=== PATIENT | female | born 1960 | race Caucasian/White ===

== ENCOUNTER → 2017-02-13 | Outpatient (CLI) | payer BC | END | disposition home or self-care (01) | LOC: C.PAPS 11:12 | PROVIDERS: ATTEND Obstetrics & Gynecology | DX: Z01.419 Encounter for gynecological examination (general) (routine) without abnormal findings (principal) ==

== ENCOUNTER → 2017-03-13 | Outpatient (CLI) | payer BC ==
--- NOTE | 2017-03-14 14:30 | MAMMOGRAPHY REPORT ---
BILATERAL DIGITAL SCREENING MAMMOGRAM TOMOSYNTHESIS WITH CAD: 03/13/2017 CLINICAL HISTORY: Routine screening. Patient has no complaints. TECHNIQUE: Breast tomosynthesis in addition to standard 2D mammography was performed. Current study was also evaluated with a Computer Aided Detection (CAD) system. COMPARISON: Comparison is made to exams dated: 03/11/2016 mammogram, 03/07/2015 mammogram, 02/28/2014 ma mmogram, 02/23/2013 mammogram, 02/21/2012 mammogram, and 02/18/2011 mammogram - [facility] nter. BREAST COMPOSITION: The tissue of both breasts is heterogeneously dense, which may obscure small mas ses. FINDINGS: There is an oval circumscribed 6 mm mass in the right 12:00 anterior breast, which appears slightly increased in size compared to prior exams. Recommend ultrasound for further evaluation. T his may represent a cyst. The remainder of both breasts are stable compared to prior exams, without suspicious masses, calcific ations, or areas of architectural distortion noted. Scattered bilateral benign-appearing calcificati ons are not significantly changed. IMPRESSION: ACR BI-RADS CATEGORY 0: INCOMPLETE EVALUATION: NEED ADDITIONAL IMAGING EVALUATION Right breast mass, for which additional imaging evaluation is recommended. The patient will be juarez d to schedule an appointment. Approximately 10% of breast cancers are not detected with mammography. A negative mammographic report should not delay biopsy if a clinically suggestive mass is present. Chelsey Sampson M.D. /:03/13/2017 16:44:26 Environmental Associate: Chary OLMEDO(Laura)(M), [facility] letter sent: Addl Imaging 0 BI-RADS Code: ACR BI-RADS Category 0: Incomplete Evaluation: Need Additional Imaging Evaluation
== END | disposition home or self-care (01) ==
LOC: C.MAMM 07:39
PROVIDERS: ATTEND Obstetrics & Gynecology
DX: Z12.31 Encounter for screening mammogram for malignant neoplasm of breast (principal); N63 Unspecified lump in breast

== ENCOUNTER → 2017-03-26 | Outpatient (CLI) | payer BC ==
--- NOTE | 2017-03-26 14:15 | MAMMOGRAPHY REPORT ---
ULTRASOUND OF RIGHT BREAST: 03/26/2017 CLINICAL HISTORY: Callback from screening mammogram for right 12:00 breast mass. COMPARISON: Comparison is made to exams dated: 03/13/2017 mammogram, 03/11/2016 mammogram, 03/07/2015 m ammogram, 02/28/2014 mammogram, 02/23/2013 mammogram, and 02/21/2012 mammogram - [facility] nter. TECHNIQUE: Real-time targeted ultrasound of the right breast was performed. FINDINGS: Real-time, high resolution targeted ultrasound was performed of the region of the mammogra phic mass seen on the recent screening mammogram. In the right breast at 12:00 subareolar region, th ere is a superficially located oval circumscribed mixed echogenicity mass, which is predominantly ane choic although has some echogenic portions within it. The mass measures 6 x 2 x 6 mm. This correspo nds with the mammographic mass and likely represents a complicated cyst, however, a mixed cystic and solid mass is not excluded. Recommend ultrasound guided aspiration versus biopsy for further evaluat ion. IMPRESSION: ACR BI-RADS CATEGORY 4A: LOW SUSPICION FOR MALIGNANCY - FOLLOW-UP RECOMMENDED Mixed echogenicity 6 mm mass in the right 12:00 subareolar breast, which corresponds with the mammogr aphic mass. This likely represents a complicated cyst, however, a mixed cystic and solid mass is not excluded. Therefore, recommend ultrasound guided aspiration versus biopsy for further evaluation. A phone call was made to the physician's office to confirm faxed results were received. The patient was verbally notified of the results. She tentatively scheduled the biopsy before leaving the depart ment. Chelsey Sampson M.D. ah/:03/26/2017 11:32:35 Attending Technologist: Vlad OLMEDO(R)(M), [facility] Reactor Service Operator: Chelsey Sampson MD, [facility] letter sent: Abnormal 4/5 BI-RADS Code: ACR BI-RADS Category 4A: Low Suspicion For Malignancy
== END | disposition home or self-care (01) ==
LOC: C.MAMM 10:49
PROVIDERS: ATTEND Obstetrics & Gynecology
DX: N63 Unspecified lump in breast (principal)

== ENCOUNTER → 2017-04-03 | Outpatient (CLI) | payer BC ==
--- NOTE | 2017-04-03 08:35 | Discharge Instructions ---
Discharge Instructions Procedure Procedure Date: Apr 03, 2017. Reason for visit: Right Mass-Asp Vs Bx. Discharge Discharge Date: Apr 03, 2017. Discharge Diagnosis: status post breast biopsy Instructions Activity Recommendations: Additional Limitations (see below) Return to School/Work: no limitations Recommended Home Diet: No Limitations Provider Instructions: ACTIVITY RECOMMENDATIONS: * No lifting, pushing, pulling or exercising the affected side for three days. RETURN TO SCHOOL/WORK: * You may return to work/school after the procedure, but do not perform any strenuous activities for 24 to 48 hours. MEDICATIONS: * Tylenol (two 325 mg) every four to six hours if needed for mild pain (if not allergic to Tylenol). DIET: * Resume previous diet. SPECIAL CARE INSTRUCTIONS: * Keep biopsy site dry for 24 hours. May shower after 24 hours, but do not soak (bathe) incision. * May remove Tegaderm (plastic patch) tomorrow AFTER showering. * Leave the steri-strips on for one week. Allow the steri-strips to fall off by themselves. If not off after one week, you may remove them. You may place a Bandaid crosswise over the strips, if desired. * Apply ice 10 minutes on and 10 minutes off as needed. * Wear a bra at bedtime to sleep more comfortably for 2-3 days. * Your referring physician should have the results after approximately 5 to 7 business days. * Call for unusual bleeding, fever, drainage, etc or if you have any questions call during normal business hours or after hours call Dr Sampson, [phone]. FOLLOW UP VISIT: Follow-up with Referring Physician as scheduled. Allergies Coded Allergies: No Known Allergies (Verified Allergy, Unknown, 09/24/04) Shaq Lara Recommendations: Call your doctor if: * Temperature above 101 degrees * Pain not relieved by pain medicine ordered * There is increased drainage or redness from any incision * You have any unanswered questions or concerns. Your Doctors Instructions noted above were prepared by provider Chelsey Sampson. Patient Signature Section: Patient Instructions Signature Page Maliha Jorge Patient (or Guardian) Signature/Date: I have read and understand the instructions given to me by my caregivers. Caregiver/RN/Doctor Signature/Date: The above-named patient and/or guardian has received patient instructions on this date. + Original Patient Signature Page (only) stays with chart. Please make copy for patient.
--- NOTE | 2017-04-03 12:43 | MAMMOGRAPHY REPORT ---
ULTRASOUND GUIDED BIOPSY RIGHT BREAST: 04/03/2017 CLINICAL HISTORY: Right 12:00 breast mass. PATIENT CONSENT: The procedure, risks and benefits were discussed with the patient and informed writt en consent was obtained. A timeout was performed immediately prior to the procedure. PROCEDURE DESCRIPTION: Preprocedural ultrasound demonstrates persistent of the right 12:00 periareola r breast mass. It was felt that the mass would likely not completely aspirate due to probable multip le thin internal septations, therefore, the decision was made to perform biopsy of the mass. With ul trasound guidance, aseptic technique, and lidocaine as the local anesthetic (1% lidocaine to anesthet ize the skin and 1% lidocaine with epinephrine to anesthetize the deeper tissues), the mass of concer n in the right 12:00 periareolar breast was sampled 3 times with a 14-gauge Achieve biopsy needle. T he mass was no longer evident after the samples were taken. Immediately thereafter, with ultrasound guidance, aseptic technique, and lidocaine as the local anesthetic, a metallic localizer clip was ramsey josefina at the biopsy site. Direct pressure was applied to the site immediately post procedure and hemost asis was achieved. Postprocedure unilateral mammograms were performed to confirm clip placement. Th e patient tolerated the procedure without complication. She was given wound care instructions. The s pecimens were sent to pathology for analysis. COMPARISON: Comparison is made to exams dated: 04/03/2017 mammogram, 03/26/2017 ultrasound, 03/13/2017 m ammogram, 03/11/2016 mammogram, and 03/07/2015 mammogram - [facility]. IMPRESSION: ULTRASOUND GUIDED BIOPSY Ultrasound guided biopsy of the right 12:00 breast mass, with clip placement. The patient will recei ve pathology results from her referring provider. Chelsey Sampson M.D. /:04/03/2017 08:39:22 Sales Enablement Lead: Chary Farnsworth, [facility]
--- NOTE | 2017-04-03 12:43 | MAMMOGRAPHY REPORT ---
UNILATERAL RIGHT DIGITAL DIAGNOSTIC MAMMOGRAM: 04/03/2017 CLINICAL HISTORY: Status post right breast biopsy. TECHNIQUE: Postprocedural right CC and ML views were obtained. COMPARISON: Comparison is made to exams dated: 03/26/2017 ultrasound, 03/13/2017 mammogram, 03/07/2015 mammogram, 03/11/2016 mammogram, 02/28/2014 mammogram, and 02/23/2013 mammogram - [facility] enter. BREAST COMPOSITION: The tissue of the right breast is heterogeneously dense, which may obscure small masses. FINDINGS: A new biopsy marker clip is seen in the right 12:00 subareolar breast status post ultrasou nd guided biopsy of the right 12:00 breast mass. No significant postbiopsy hematoma is seen. IMPRESSION: POST PROCEDURE IMAGING FOR MARKER PLACEMENT New biopsy marker clip status post ultrasound-guided biopsy of a right 12:00 breast mass. Pathology results are pending. Approximately 10% of breast cancers are not detected with mammography. A negative mammographic report should not delay biopsy if a clinically suggestive mass is present. Chelsey Sampson M.D. ah/:04/03/2017 08:41:17 Machine Designer: Chary Farnsworth [facility] BI-RADS Code: Post Procedure Imaging For Marker Placement
== END | disposition home or self-care (01) ==
LOC: C.MAMM 08:08
PROVIDERS: ATTEND Obstetrics & Gynecology
DX: N63 Unspecified lump in breast (principal)

== ENCOUNTER → 2018-03-09 | Outpatient (CLI) | payer OTHER, BC | END | disposition home or self-care (01) | LOC: C.PAPS 11:51 | PROVIDERS: ATTEND Obstetrics & Gynecology | DX: Z12.4 Encounter for screening for malignant neoplasm of cervix (principal) ==

== ENCOUNTER → 2018-03-18 | Outpatient (CLI) | payer OTHER, BC ==
--- NOTE | 2018-03-18 13:37 | MAMMOGRAPHY REPORT ---
BILATERAL DIGITAL SCREENING MAMMOGRAM TOMOSYNTHESIS WITH CAD: 03/18/2018 CLINICAL HISTORY: Routine screening. TECHNIQUE: The study was acquired using full field digital technology and interpreted from soft copy. Breast tomosynthesis in addition to standard 2D mammography was performed. Current study was also ev aluated with a Computer Aided Detection (CAD) system. COMPARISON: Comparison is made to exams dated: 04/03/2017 mammogram, 03/13/2017 mammogram, 03/11/2016 ma mmogram, 03/07/2015 mammogram, 02/23/2013 mammogram, and 02/28/2014 mammogram - [facility] [address] ter. BREAST COMPOSITION: The tissue of both breasts is heterogeneously dense, which may obscure small mass es. FINDINGS: There is a stable ribbon-shaped biopsy marker clip in the anterior 12:00 subareolar right b reast. Stable loose groupings of faint punctate microcalcifications in both breasts. No developing mass, architectural distortion or cluster of suspicious microcalcifications is seen in either breast. IMPRESSION: ACR BI-RADS CATEGORY 2: BENIGN There is no mammographic evidence of malignancy. A 1 year screening mammogram is recommended.( [id number]) The patient will receive written notification of the results. Some breast cancers are not detected with mammography. A negative mammographic report should not bj y biopsy if a clinically suggestive mass is present. Violeta Seymour M.D. ay/:03/18/2018 08:38:10 Structural Steel Equipment Erector: RT Braeden(Laura)(M), [facility] letter sent: Normal 1/2 BI-RADS Code: ACR BI-RADS Category 2: Benign
== END | disposition home or self-care (01) ==
LOC: C.MAMM 08:10
PROVIDERS: ATTEND Obstetrics & Gynecology
DX: Z12.31 Encounter for screening mammogram for malignant neoplasm of breast (principal)

== ENCOUNTER 2023-05-31 17:16 | Inpatient (IN) ==
--- NOTE | 2023-05-31 17:37 | Emergency Department Note ---
Impression & Plan Acute non-ST elevation myocardial infarction (NSTEMI) ED Provider Note NAME: REYNALDO ADAME AGE: 62 SEX: F : 1960 ARRIVES VIA: Walk-In INFORMANT: Patient, ED PROVIDER(S): Dejan Whittington MD CHIEF COMPLAINT: Chest pain MEDICAL DECISION MAKING: Patient presents due to concern for chest pain. IV was established blood was obtained along with an EKG troponin chest x-ray. Of note there was a significant delay in obtaining blood work as lab was called and this took a significant mount of time in order to obtain the blood work. Patient did not have any significant change in her symptoms. Blood work shows a white count of 13 with a normal H&H and platelet count. The patient's kidney function is unremarkable. Initial troponin of 96. Patient was reevaluated after receiving the positive troponin result. Patient states that she has been having some burping but no change in the 1 out of 10 chest pressure. Patient was ordered aspirin nitro and heparin. I did explain the findings to the patient she is comfortable with current plan of care. No red flag signs or risk factors for PE or DVT at this time. Patient is not hypoxic. I did speak with the on-call hospitalist service Dr. Beverly. I did obtain a repeat EKG which shows no significant change from initial EKG. Do not believe she requires STEMI activation at this time. Patient was admitted to the medicine service by Dr. Beverly Critical Care: I have personally spent 45 minutes of critical care time in direct management of this patient. This includes bedside care, interpretation of diagnostic studies, and testing, discussion with consultants, patient, and family members, and other require inpatient management activities. This 45 minutes is in excess of all separately billable procedures. Discussion w/ other healthcare providers: Dr. Beverly inpatient medicine's Prior /Outside records reviewed: I reviewed a cardiology note from Dr. Gardiner and Makenna VENTURA. Patient is have a known history of paroxysmal atrial tachycardia patient did have an exercise stress echo completed in February 2020 which was negative for inducible ischemia at that time. Patient did have a 7-day ZIO report from March 2019 which showed some episodes of SVT may be possible atrial tachycardia with variable block. Patient was to have a repeat ZIO monitor as well as orders and continue metoprolol for known history of paroxysmal atrial tachycardia. Differential diagnosis: Cardiac ischemia, aortic dissection, pulmonary embolism, pneumothorax, pneumonia, pericarditis, myocarditis, GERD, cholecystitis, pancreatitis, musculoskeletal, as well as other pathologies were considered. Diagnostics, as interpreted by me: ECG: Normal sinus rhythm, rate of 70, normal intervals, left axis deviation, no ST elevations, T wave flattening in lead V2. Other than T wave flattening in lead V2 no significant change from comparison EKG completed August 20, 2018. Repeat EKG interpreted by me Normal sinus rhythm, rate of 67, normal intervals, left axis deviation possible borderline elevation in V2 but not in contiguous leads. No significant change for comparison EKG completed earlier at 1720 Cardiac monitoring: An order was placed for continuous cardiac monitoring. The monitor shows a rate of 85 with sinus rhythm. Patient was placed on pulse oximetry Medical decision rules: Heart score, Wells score Imaging studies: I informally interpreted the patient's chest x-ray which does not show obvious pneumonia or pneumothorax with formal report to follow. HPI: Patient presents due to concern for chest discomfort that she describes as pressure which is just slightly in the left chest. Not radiating to arm neck or jaw not positional no nausea vomiting or diaphoresis. The patient did note that she had some loose stools today and does feel as if she had some achiness to the bilateral arms almost as if she had a pulled muscle but states that she did not lift anything. Patient denies any cough or fever or upper respiratory symptoms. No prior history of CAD or lung disease. The patient has followed with Dr. Gardiner with cardiology in the past for some sort of rapid heart rate but she is unsure as to exactly what this was. Patient does have a follow-up with the cardiology PA in several weeks. Patient Nu[place] any leg swelling history of DVT or PE. The patient denies any recent surgeries procedures or hospitalizations. PAST MEDICAL HISTORY: See Below PAST SURGICAL HISTORY: See Below SOCIAL HISTORY: See Below HOME MEDICATIONS: See Below ALLERGIES: See Below VITALS: See Below PHYSICAL EXAMINATION: GENERAL: NAD, non-toxic. Wearing glasses. EYE EXAM: Normal conjunctiva. PERRL, no anisocoria and EOM's grossly intact w/o pain. OROPHARYNX: Moist mucus membranes, grossly normal dentition. NECK: Supple, no nuchal rigidity, no adenopathy, non-tender. No signs of meningismus. FROM of the neck with good chin to chest and neck extension. No stridor. LUNGS: Clear to auscultation. Normal chest wall mechanics. HEART: NSR, no MRG. ABDOMEN: Abdomen soft, non-tender, no masses, no rebound or guarding. BACK: No CVA TTP. SKIN: No rashes and no bruising. UPPER EXTREMITIES: Upper extremities are grossly normal. LOWER EXTREMITIES: Grossly normal, no edema. Negative Homans' sign bilaterally. NEURO EXAM: A&O x3, cranial nerves II-XII grossly intact, normal speech, moves all 4 extremities. Past Med/Surg History Medical History (Updated 05/31/23 @ 23:13 by Dejan Whittington MD) History of herpes simplex infection History of female infertility Hypothyroidism Hypertension Surgical History History of oral surgery History of hemorrhoidectomy History of hysterectomy supracervical Family History Denies family history of Ovarian cancer Breast cancer Colorectal cancer Social History Smoking Status: Never smoker Second Hand Exposure: No; Do You Dip or Chew Tobacco: No; Hx Alcohol Use: Yes Alcohol type: other Hx Substance Use: No Preferred Language: Russian Communication Ability: Effective Shipping Support Required: No Beliefs That Will Affect Care: None Current Living Situation: Spouse Feels Safe at Home: Yes Assistive Devices: Glasses Allergies Allergies Allergy/AdvReac Type Severity Reaction Status Date / Time latex AdvReac Mild hives Verified 11/05/21 14:17 Home Meds Home Medications Medication Instructions Recorded Confirmed multivitamin 1 tab PO QAM 08/12/18 11/05/21 levothyroxine 137 mcg tablet PO 03/24/19 11/05/21 losartan 100 mg tablet PO 03/24/19 11/05/21 hydrochlorothiazide 25 mg tablet 25 mg PO DAILY 05/18/20 11/05/21 metoprolol tartrate 50 mg tablet 25 mg PO DAILY 05/18/20 11/05/21 (Lopressor) Previous Rx's Medication Instructions Recorded estradiol 0.01% (0.1 mg/gram) 1 g vaginal DAILY #42.5 grams 11/05/21 vaginal cream Results & Data (ED) Vital Signs Vital Signs - 24 hr 05/31/23 17:21 05/31/23 17:40 05/31/23 17:43 Temperature 36.5 C Temperature Source Temporal Artery Scan Pulse Rate 74 Pulse Rate [Right Finger] 73 Pulse Rhythm Pulse Strength [Right Finger] Respiratory Rate 18 18 Respiratory Effort / Characteristics Non-Labored Spontaneous Non-Labored Spontaneous Respiratory Depth Normal Normal Respiratory Pattern Regular Blood Pressure 165/88 H Blood Pressure [Right Arm] 164/107 H Blood Pressure Mean 113 Blood Pressure Mean [Right Arm] 126 Blood Pressure Position Sitting Pulse Oximetry 98 98 99 Oxygen Delivery Method Room Air Room Air Room Air Sepsis Recent Fever Within 48 Hours No Sepsis New/Unexplained Change in Mental Status N/A Sepsis Action Taken by Nursing No Action Required 05/31/23 17:45 05/31/23 17:47 05/31/23 19:27 Temperature Temperature Source Pulse Rate 72 88 70 Pulse Rate [Right Finger] Pulse Rhythm Regular Pulse Strength [Right Finger] Respiratory Rate 18 24 Respiratory Effort / Characteristics Respiratory Depth Respiratory Pattern Blood Pressure 174/96 H Blood Pressure [Right Arm] Blood Pressure Mean 122 Blood Pressure Mean [Right Arm] Blood Pressure Position Pulse Oximetry 99 95 Oxygen Delivery Method Room Air Room Air Sepsis Recent Fever Within 48 Hours Sepsis New/Unexplained Change in Mental Status Sepsis Action Taken by Nursing 05/31/23 19:30 05/31/23 20:00 05/31/23 20:00 Temperature Temperature Source Pulse Rate 71 60 Pulse Rate [Right Finger] 66 Pulse Rhythm Pulse Strength [Right Finger] Normal Respiratory Rate 23 21 23 Respiratory Effort / Characteristics Non-Labored Respiratory Depth Normal Respiratory Pattern Regular Blood Pressure 160/90 H Blood Pressure [Right Arm] Blood Pressure Mean 113 Blood Pressure Mean [Right Arm] Blood Pressure Position Pulse Oximetry 99 96 95 Oxygen Delivery Method Room Air Room Air Room Air Sepsis Recent Fever Within 48 Hours Sepsis New/Unexplained Change in Mental Status Sepsis Action Taken by Nursing 05/31/23 20:30 05/31/23 21:00 05/31/23 21:30 Temperature Temperature Source Pulse Rate 65 72 Pulse Rate [Right Finger] 78 Pulse Rhythm Pulse Strength [Right Finger] Normal Respiratory Rate 21 21 20 Respiratory Effort / Characteristics Non-Labored Respiratory Depth Normal Respiratory Pattern Regular Blood Pressure 134/72 Blood Pressure [Right Arm] Blood Pressure Mean 92 Blood Pressure Mean [Right Arm] Blood Pressure Position Pulse Oximetry 98 96 97 Oxygen Delivery Method Room Air Room Air Room Air Sepsis Recent Fever Within 48 Hours Sepsis New/Unexplained Change in Mental Status Sepsis Action Taken by Intermediate Medications Current Medication List: was personally reviewed by me Laboratory Data Attestation: I reviewed the patient's lab results. 05/31/23 19:41 05/31/23 19:41 Lab Results 05/31/23 05/31/23 Range/Units 17:48 19:41 WBC 13.58 H (4.8-10.8) K/ul RBC 4.14 L (4.20-5.40) M/uL Hgb 12.4 (12.0-16.0) g/dl Hct 37.8 (37.0-47.0) % MCV 91.3 (80.0-100.0) fL MCH 30.0 (25.0-34.0) pg MCHC 32.8 (32.0-36.0) g/dL RDW Std Deviation 41.5 (36.4-46.3) fL RDW Coeff of Sterling 12.5 (11.5-14.5) % Plt Count 276 (130-400) K/uL MPV 10.3 (9.4-12.4) fL Immature Gran % (Auto) 0.4 % Neut % (Auto) 70.7 % Lymph % (Auto) 17.6 % [place] % (Auto) 7.1 % Eos % (Auto) 3.7 % Baso % (Auto) 0.5 % Neut # (Auto) 9.59 H (1.40-6.50) K/uL Lymph # (Auto) 2.39 (1.20-3.40) K/uL [place] # (Auto) 0.97 H (0.11-0.59) K/uL Eos # (Auto) 0.50 (0.00-0.50) K/uL Baso # (Auto) 0.07 (0.00-0.20) K/uL Immature Gran # (Auto) 0.06 (0.01-0.20) K/uL PT 11.2 (9.0-12.0) Seconds INR 1.0 (0.9-1.1) APTT 28.3 (21.0-31.0) Seconds PTT Ratio 1.0 Sodium 140 (136-145) mmol/L Potassium 4.8 (3.5-5.1) mmol/L Chloride 109 H (98-107) mmol/L Carbon Dioxide 25 (21-32) mmol/L Anion Gap 6 (3-11) BUN 17 (6-23) mg/dl Creatinine 0.80 (0.6-1.2) mg/dl Est Cr Clr Drug Dosing 76.2 ml/min Est GFR ( Amer) 91.6 ml/min Est GFR (Non-Af Amer) 79.0 ml/min BUN/Creatinine Ratio 21.3 H (10-20) Glucose 101 H (70-99(Fasting)) mg/dl Calcium 9.3 (8.6-10.3) mg/dl Magnesium 2.1 (1.7-2.4) mg/dl Total Bilirubin 0.7 (0.2-1.0) mg/dl AST 29 (13-39) U/L ALT 31 (7-52) U/L Alkaline Phosphatase 65 (34-104) U/L Troponin I High Sens 986.9 H* (0-14) pg/ml Total Protein 7.2 (6.0-8.3) gm/dl Albumin 4.3 (3.4-5.0) gm/dl Globulin 2.9 (2.5-4.0) gm/dl Albumin/Globulin Ratio 1.5 (0.9-2) Lipase 14 (11-82) U/L TSH 4.175 (0.300-4.500) uIu/ml Adenovirus (PCR) Not Detected (NotDetected) B. pertussis DNA (PCR) Not Detected (NotDetected) B.parapertussis DNA PCR Not Detected (NotDetected) C. pneumoniae DNA (PCR) Not Detected (NotDetected) Coronavirus OC43 (PCR) Not Detected (NotDetected) Coronavirus HKU1 (PCR) Not Detected (NotDetected) Coronavirus 229E (PCR) Not Detected (NotDetected) SARS-CoV-2 (PCR) Not Detected (NotDetected) Coronavirus NL63 (PCR) Not Detected (NotDetected) Human Metapneumovir PCR Not Detected (NotDetected) Influenza Type A (PCR) Not Detected (NotDetected) Influenza Type B (PCR) Not Detected (NotDetected) M. pneumoniae (PCR) Not Detected (NotDetected) Parainfluenza 1 (PCR) Not Detected (NotDetected) Parainfluenza 2 (PCR) Not Detected (NotDetected) Parainfluenza 3 (PCR) Not Detected (NotDetected) Parainfluenza 4 (PCR) Not Detected (NotDetected) RSV (PCR) Not Detected (NotDetected) Entero/Rhino (PCR) Not Detected (NotDetected) Administered Medications Heparin Sodium/Dextrose (Heparin Sodium/Dextrose) 25,000 units in 500 mls @ 16 mls/hr IV .Q24H [facility]; Protocol Stop: 06/30/23 20:59 Last Admin: 05/31/23 21:25 Dose: 800 units/hr, 16 mls/hr Documented By: KIMBERLY Co-signed By: ILSA Discontinued Medications Aspirin (Aspirin Chew 324 Mg) 324 mg PO NOW STA Stop: 05/31/23 20:35 Last Admin: 05/31/23 21:25 Dose: 324 mg Documented By: KIMBERLY Heparin Sodium (Porcine) (Heparin Sod (Porcine) 1000 Unit/Ml) 4,000 units IV NOW ONE Stop: 05/31/23 21:31 Last Admin: 05/31/23 21:25 Dose: 4,000 units Documented By: KIMBERLY Co-signed By: LISA Sodium Chloride (Nss) 500 mls @ 999 mls/hr IV .Q31M STA Stop: 05/31/23 18:14 Last Infusion: 05/31/23 18:27 Dose: Infused Documented By: Admin: 05/31/23 17:51 Dose: 999 mls/hr Documented By: FIDENCIO Nitroglycerin (Nitroglycerin Sl 0.4 Mg/Tab Tab) 0.4 mg SL NOW STA Stop: 05/31/23 20:37 Last Admin: 05/31/23 21:25 Dose: 0.4 mg Documented By: KIMBERLY Imaging Data Radiologist's Impression: Chest X-Ray 05/31/23 17:44 XR chest 1V portable CLINICAL HISTORY: Chest pain, nonspecific TECHNIQUE: Single frontal radiograph of the chest was obtained. Comparison: None available at the time of this dictation. FINDINGS: No lines and tubes are seen. Calcified aortic knob is seen. The lungs are clear. No evidence of pleural effusion or pneumothorax. IMPRESSION: No acute chest disease. ACT 112: Negative or not required by law. Electronically signed by: Timur Ly M.D. 05/31/2023 6:18 PM Discharge Plan Visit Data Chief Complaint: Chest Pain Stated Complaint: NOT FEELING LIKE SELF,CHEST PRESSURE ED Provider: Dejan Whittington Discharge Problem: Acute non-ST elevation myocardial infarction (NSTEMI) Discharge Instructions Interventions: ED Discharge Assessment Last Done: 05/31/23 22:30
[2023-05-31] MEDS ORDERED: SODIUM CHLORIDE 0.9% 500 ML IV STA (17:44)
--- NOTE | 2023-05-31 18:19 | XRay Report ---
XR chest 1V portable CLINICAL HISTORY: Chest pain, nonspecific TECHNIQUE: Single frontal radiograph of the chest was obtained. Comparison: None available at the time of this dictation. FINDINGS: No lines and tubes are seen. Calcified aortic knob is seen. The lungs are clear. No evidence of pleur al effusion or pneumothorax. IMPRESSION: No acute chest disease. ACT 112: Negative or not required by law. Electronically signed by: Timur Ly M.D. 05/31/2023 6:18 PM
[2023-05-31 18:50] LABS: Adenovirus PCR Not Detected (NotDetected); Bordetella parapertussis PCR Not Detected (NotDetected); Bordetella pertussis PCR Not Detected (NotDetected); Chlamydia pneumoniae PCR Not Detected (NotDetected); Coronavirus 229E PCR Not Detected (NotDetected); Coronavirus CoV-2 (COVID19)PCR Not Detected (NotDetected); Coronavirus HKU1 PCR Not Detected (NotDetected); Coronavirus NL63 PCR Not Detected (NotDetected); Coronavirus OC43PCR Not Detected (NotDetected); Human Metapneumovirus PCR Not Detected (NotDetected); Influenza A PCR Not Detected (NotDetected); Influenza B PCR Not Detected (NotDetected); Mycoplasma pneumoniae PCR Not Detected (NotDetected); Parainfluenza Virus 1 PCR Not Detected (NotDetected); Parainfluenza Virus 2 PCR Not Detected (NotDetected); Parainfluenza Virus 3 PCR Not Detected (NotDetected); Parainfluenza Virus 4 PCR Not Detected (NotDetected); Respiratory Syncytial VirusPCR Not Detected (NotDetected); Rhinovirus/Enterovirus PCR Not Detected (NotDetected)
[2023-05-31 20:00] LABS: Basophils # (auto) 0.07 K/uL (0.00-0.20); Basophils % (auto) 0.5 %; Eosinophils % (auto) 3.7 %; Hematocrit (blood only) 37.8 % (37.0-47.0); Hemoglobin 12.4 g/dl (12.0-16.0); Immature Granulocytes # (auto) 0.06 K/uL (0.01-0.20); Immature Granulocytes % (auto) 0.4 %; Lymphocytes # (auto) 2.39 K/uL (1.20-3.40); Lymphocytes % (auto) 17.6 %; Mean Corpuscular Hgb Conc 32.8 g/dL (32.0-36.0); Mean Corpuscular Volume 91.3 fL (80.0-100.0); Mean Platelet Volume 10.3 fL (9.4-12.4); Monocytes # (auto) 0.97 K/uL (0.11-0.59); Monocytes % (auto) 7.1 %; Neutrophils # (auto) 9.59 K/uL (1.40-6.50); Neutrophils % (auto) 70.7 %; Platelet Count 276 K/uL (130-400); RDW Coefficient of Variation 12.5 % (11.5-14.5); RDW Standard Deviation 41.5 fL (36.4-46.3); Red Blood Count 4.14 M/uL (4.20-5.40); White Blood Count 13.58 K/ul (4.8-10.8)
[2023-05-31 20:15] LABS: Albumin Globulin Ratio 1.5 (0.9-2); Albumin Level 4.3 gm/dl (3.4-5.0); BUN Creatinine Ratio 21.3 (10-20); Bilirubin,Total 0.7 mg/dl (0.2-1.0); Calcium 9.3 mg/dl (8.6-10.3); Creatinine Clr Calc Pharmacy 76.2 ml/min; Est GFR (African American) 91.6 ml/min; Globulin 2.9 gm/dl (2.5-4.0); Potassium 4.8 mmol/L (3.5-5.1); Total Protein 7.2 gm/dl (6.0-8.3)
[2023-05-31 20:24] LABS: Partial Thromboplastin Time 28.3 Seconds (21.0-31.0); Prothrombin Time 11.2 Seconds (9.0-12.0)
[2023-05-31] MEDS ORDERED: ASPIRIN CHEW 324 MG PO STA (20:34)
[2023-05-31] MEDS ORDERED: Heparin IV Adult Wt-Based Low-Dose WITH Bolus Protocol IV STA (20:34)
[2023-05-31 20:35] LABS: Troponin I High Sensitivity 986.9 pg/ml (0-14)
[2023-05-31] MEDS ORDERED: NITROGLYCERIN SL 0.4 MG/TAB TAB SL STA (20:36)
[2023-05-31] MEDS ORDERED: HEPARIN SOD (PORCINE) 1000 UNIT/ML IV ONE ×2 (20:50→21:30)
[2023-05-31 21:00] LABS: Magnesium 2.1 mg/dl (1.7-2.4)
[2023-05-31] MEDS: HEPARIN SODIUM/DEXTROSE 25,000 UNITS/500 ML BAG IV SCH (21:25)
[2023-05-31 21:29] LABS: Thyroid Stimulating Hormone 4.175 uIu/ml (0.300-4.500)
--- NOTE | 2023-05-31 21:34 | History & Physical Report ---
Date of Service May 31, 2023 Assessment & Plan (1) Acute non-ST elevation myocardial infarction (NSTEMI): Plan: hypertension, slightly elevated paroxysmal atrial tachycardia hyperlipidemia on statin Rx hypothyroidism, euthyroid as of today's TSH Foodborne diarrheal illness PCU Aspirin, beta-angelien, statin for CAD prevention Continue IV heparin initiated at the ER Trend troponin TTE, Cardiology consult in a.m. Re: NSTEMI N.p.o. after midnight in anticipation of ischemic work-up in a.m. Stool work-up DVT prophylaxis. IV heparin Full code Patient requesting updates for providers. Mr. Galo Herman, contact #[phone]. Text document was generated using [employer] voice recognition software. It may contain grammatical or spelling errors. Kindly contact undersigned for clarification of any documentation item in question. History of Present Illness Chief Complaint: Chest tightness Primary Care Provider: Alysha Gardiner, History obtained from patient, family, and records. Medical history significant for hypertension, paroxysmal atrial tachycardia, hyperlipidemia, hypothyroidism. Last confinement 2004 under gynecology service for supracervical hysterectomy for rapidly growing fibroid uterus. Patient not feeling well since yesterday. Somewhat tired today. Patient later experience substernal pressure without radiation without shortness of breath or diaphoresis. No previous episodes. No unusual exertion. Patient does not check her blood pressure at home. Denies headache symptoms. Loose stools and burping later in the afternoon without abdominal pain. Patient consumed a burger at a local restaurant. No fever, no chills. Not sure about sick contacts, no recent antibiotic Rx. Chest discomfort improved after nitroglycerin administration at the ER. Aspirin, IV heparin initiated at the ER. Medical History as above Surgical History : Partial hysterectomy Family History : Heart disease Personal/Social history : Non-smoker, occasional EtOH intake, [employer] employee Allergies Allergy/AdvReac Type Severity Reaction Status Date / Time latex AdvReac Mild hives Verified 11/05/21 14:17 Home Medications Medication Instructions Recorded Confirmed Type multivitamin 1 tab PO QAM 08/12/18 06/01/23 History losartan 100 mg tablet 10 mg PO QAM 03/24/19 06/01/23 History atorvastatin 10 mg tablet 10 mg PO QAM 06/01/23 06/01/23 History levothyroxine 100 mcg tablet 100 mcg PO QAM 06/01/23 06/01/23 History metoprolol succinate 25 mg 25 mg PO QAM 06/01/23 06/01/23 History tablet,extended release 24 hr Past Med/Surg History Medical History (Updated 05/31/23 @ 23:13 by Dejan Whittington MD) History of herpes simplex infection History of female infertility Hypothyroidism Hypertension Surgical History History of oral surgery History of hemorrhoidectomy History of hysterectomy supracervical Family History Denies family history of Ovarian cancer Breast cancer Colorectal cancer Social History Smoking Status: Never smoker Second Hand Exposure: No; Do You Dip or Chew Tobacco: No; Hx Alcohol Use: Yes Alcohol type: other Hx Substance Use: No Preferred Language: [place] Communication Ability: Effective 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 Beliefs That Will Affect Care: None Current Living Situation: Spouse Feels Safe at Home: Yes Assistive Devices: Glasses Review of Systems Review of Systems: As per HPI, all other systems reviewed and negative Physical Exam Physical Exam: GENERAL: Comfortable, pleasant, obese, looks younger than stated age, no respiratory distress SKIN: Normal color, warm HEENT: Bespectacled, Trion palpebral conjunctivae, no ptosis, dry buccal mucosa NECK : Supple, no tenderness CHEST : CTA, no tenderness HEART : RRR, no obvious murmurs ABDOMEN: Some distention, nontender EXTREMITIES : No LE swelling/tenderness, no other conspicuous deformities noted NEUROLOGIC : Coherent, no facial asymmetry, no other gross focality Results & Data Results & Data Vital Signs (Past 12 Hours) Vital Signs Temp Pulse Pulse Resp BP BP Pulse Ox 05/31/23 21:00 78 21 96 05/31/23 20:00 66 21 96 05/31/23 19:30 71 23 160/90 H 99 05/31/23 19:27 70 24 174/96 H 95 05/31/23 17:47 88 05/31/23 17:45 72 18 99 05/31/23 17:43 73 18 164/107 H 99 05/31/23 17:40 98 05/31/23 17:21 36.5 C 74 18 165/88 H 98 O2 Del Method 05/31/23 21:00 Room Air 05/31/23 20:00 Room Air 05/31/23 19:30 Room Air 05/31/23 19:27 Room Air 05/31/23 17:47 05/31/23 17:45 Room Air 05/31/23 17:43 Room Air 05/31/23 17:40 Room Air 05/31/23 17:21 Room Air Laboratory Results Laboratory Results WBC 13.58 K/ul (4.8-10.8) H 05/31/23 19:41 RBC 4.14 M/uL (4.20-5.40) L 05/31/23 19:41 Hgb 12.4 g/dl (12.0-16.0) 05/31/23 19:41 Hct 37.8 % (37.0-47.0) 05/31/23 19:41 MCV 91.3 fL (80.0-100.0) 05/31/23 19:41 MCH 30.0 pg (25.0-34.0) 05/31/23 19:41 MCHC 32.8 g/dL (32.0-36.0) 05/31/23 19:41 RDW Std Deviation 41.5 fL (36.4-46.3) 05/31/23 19:41 RDW Coeff of Sterling 12.5 % (11.5-14.5) 05/31/23 19:41 Plt Count 276 K/uL (130-400) 05/31/23 19:41 MPV 10.3 fL (9.4-12.4) 05/31/23 19:41 Immature Gran % (Auto) 0.4 % 05/31/23 19:41 Neut % (Auto) 70.7 % 05/31/23 19:41 Lymph % (Auto) 17.6 % 05/31/23 19:41 [place] % (Auto) 7.1 % 05/31/23 19:41 Eos % (Auto) 3.7 % 05/31/23 19:41 Baso % (Auto) 0.5 % 05/31/23 19:41 Neut # (Auto) 9.59 K/uL (1.40-6.50) H 05/31/23 19:41 Lymph # (Auto) 2.39 K/uL (1.20-3.40) 05/31/23 19:41 [place] # (Auto) 0.97 K/uL (0.11-0.59) H 05/31/23 19:41 Eos # (Auto) 0.50 K/uL (0.00-0.50) 05/31/23 19:41 Baso # (Auto) 0.07 K/uL (0.00-0.20) 05/31/23 19:41 Immature Gran # (Auto) 0.06 K/uL (0.01-0.20) 05/31/23 19:41 PT 11.2 Seconds (9.0-12.0) 05/31/23 19:41 INR 1.0 (0.9-1.1) 05/31/23 19:41 APTT 28.3 Seconds (21.0-31.0) 05/31/23 19:41 PTT Ratio 1.0 05/31/23 19:41 Sodium 140 mmol/L (136-145) 05/31/23 19:41 Potassium 4.8 mmol/L (3.5-5.1) 05/31/23 19:41 Chloride 109 mmol/L (98-107) H 05/31/23 19:41 Carbon Dioxide 25 mmol/L (21-32) 05/31/23 19:41 Anion Gap 6 (3-11) 05/31/23 19:41 BUN 17 mg/dl (6-23) 05/31/23 19:41 Creatinine 0.80 mg/dl (0.6-1.2) 05/31/23 19:41 Est Cr Clr Drug Dosing 76.2 ml/min 05/31/23 19:41 Est GFR ( Amer) 91.6 ml/min 05/31/23 19:41 Est GFR (Non-Af Amer) 79.0 ml/min 05/31/23 19:41 BUN/Creatinine Ratio 21.3 (10-20) H 05/31/23 19:41 Glucose 101 mg/dl (70-99(Fasting)) H 05/31/23 19:41 Calcium 9.3 mg/dl (8.6-10.3) 05/31/23 19:41 Magnesium 2.1 mg/dl (1.7-2.4) 05/31/23 19:41 Total Bilirubin 0.7 mg/dl (0.2-1.0) 05/31/23 19:41 AST 29 U/L (13-39) 05/31/23 19:41 ALT 31 U/L (7-52) 05/31/23 19:41 Alkaline Phosphatase 65 U/L (34-104) 05/31/23 19:41 Troponin I High Sens 986.9 pg/ml (0-14) H* 05/31/23 19:41 Total Protein 7.2 gm/dl (6.0-8.3) 05/31/23 19:41 Albumin 4.3 gm/dl (3.4-5.0) 05/31/23 19:41 Globulin 2.9 gm/dl (2.5-4.0) 05/31/23 19:41 Albumin/Globulin Ratio 1.5 (0.9-2) 05/31/23 19:41 Lipase 14 U/L (11-82) 05/31/23 19:41 TSH 4.175 uIu/ml (0.300-4.500) 05/31/23 19:41 Adenovirus (PCR) Not Detected (NotDetected) 05/31/23 17:48 B. pertussis DNA (PCR) Not Detected (NotDetected) 05/31/23 17:48 B.parapertussis DNA PCR Not Detected (NotDetected) 05/31/23 17:48 C. pneumoniae DNA (PCR) Not Detected (NotDetected) 05/31/23 17:48 Coronavirus OC43 (PCR) Not Detected (NotDetected) 05/31/23 17:48 Coronavirus HKU1 (PCR) Not Detected (NotDetected) 05/31/23 17:48 Coronavirus 229E (PCR) Not Detected (NotDetected) 05/31/23 17:48 SARS-CoV-2 (PCR) Not Detected (NotDetected) 05/31/23 17:48 Coronavirus NL63 (PCR) Not Detected (NotDetected) 05/31/23 17:48 Human Metapneumovir PCR Not Detected (NotDetected) 05/31/23 17:48 Influenza Type A (PCR) Not Detected (NotDetected) 05/31/23 17:48 Influenza Type B (PCR) Not Detected (NotDetected) 05/31/23 17:48 M. pneumoniae (PCR) Not Detected (NotDetected) 05/31/23 17:48 Parainfluenza 1 (PCR) Not Detected (NotDetected) 05/31/23 17:48 Parainfluenza 2 (PCR) Not Detected (NotDetected) 05/31/23 17:48 Parainfluenza 3 (PCR) Not Detected (NotDetected) 05/31/23 17:48 Parainfluenza 4 (PCR) Not Detected (NotDetected) 05/31/23 17:48 RSV (PCR) Not Detected (NotDetected) 05/31/23 17:48 Entero/Rhino (PCR) Not Detected (NotDetected) 05/31/23 17:48 Impressions Chest X-Ray 05/31/23 17:44 XR chest 1V portable CLINICAL HISTORY: Chest pain, nonspecific TECHNIQUE: Single frontal radiograph of the chest was obtained. Comparison: None available at the time of this dictation. FINDINGS: No lines and tubes are seen. Calcified aortic knob is seen. The lungs are clear. No evidence of pleural effusion or pneumothorax. IMPRESSION: No acute chest disease. ACT 112: Negative or not required by law. Electronically signed by: Timur Ly M.D. 05/31/2023 6:18 PM Diagnostic Findings EKG as per my interpretation :Rate 70, NSR, LAD, LAFB, incomplete RBBB, no ischemia
[2023-05-31] MEDS ORDERED: PROMETHAZINE HCL 6.25 MG in SODIUM CHLORIDE 0.9% 50 ML IV PRN (21:38)
[2023-05-31] MEDS ORDERED: LORazepam 0.5 MG TAB PO PRN (21:38)
[2023-05-31] MEDS ORDERED: traMADol HCL 50 MG TABLET PO PRN (21:38)
[2023-05-31] MEDS ORDERED: MoRPHine SULFATE 2 MG/ML CARP IV PRN (21:38)
[2023-05-31] MEDS ORDERED: METOPROLOL SUCC 25MG EXT REL TAB PO STA (22:29)
[2023-05-31] MEDS ORDERED: ACETAMINOPHEN 325 MG TAB PO PRN (22:32)
[2023-06-01] MEDS ORDERED: LACTATED RINGER'S 1,000 ML IV ONE
[2023-06-01 00:41] LABS: Appearance Urine Clear (Clear); Bilirubin Urine Negative (Negative); Blood Urine Negative (Negative); Color Urine Yellow; Glucose Urine UA Negative (Negative); Ketones Urine Negative (Negative); Leukocyte Esterase Urine Negative (Negative); Nitrite Urine Negative (Negative); Protein Urine Negative (Negative); Urobilinogen Urine Negative (Negative); pH Urine 5.5 (4.5-7.5)
[2023-06-01] MEDS: NITROGLYCERIN SL 0.4 MG/TAB TAB SL PRN ×2 (03:36→03:53)
[2023-06-01 04:40] LABS: BUN Creatinine Ratio 17.9 (10-20); Blood Urea Nitrogen 14 mg/dl (6-23); Calcium 8.6 mg/dl (8.6-10.3); Carbon Dioxide 22 mmol/L (21-32); Chloride 108 mmol/L (98-107); Chol HDL Ratio 2.8 (0-5); Cholesterol 165 mg/dl (0-200); Creatinine Clr Calc Pharmacy 74.9 ml/min; Est GFR (African American) 94.4 ml/min; Est GFR (Non-African American) 81.5 ml/min; Glucose 98 mg/dl (70-99(Fasting)); HDL Cholesterol 60 mg/dl; LDL Cholesterol Calculated 91 mg/dl; Triglycerides 69 mg/dl (0-150); VLDL Cholesterol 14 mg/dl (0-30)
[2023-06-01 04:48] LABS: Troponin I High Sensitivity 516.6 pg/ml (0-14)
[2023-06-01 06:32] LABS: Potassium 3.9 mmol/L (3.5-5.1)
[2023-06-01 07:30] LABS: Basophils # (auto) 0.07 K/uL (0.00-0.20); Basophils % (auto) 0.6 %; Eosinophils # (auto) 0.56 K/uL (0.00-0.50); Eosinophils % (auto) 4.7 %; Hematocrit (blood only) 36.3 % (37.0-47.0); Hemoglobin 12.3 g/dl (12.0-16.0); Immature Granulocytes # (auto) 0.05 K/uL (0.01-0.20); Immature Granulocytes % (auto) 0.4 %; Lymphocytes # (auto) 3.02 K/uL (1.20-3.40); Lymphocytes % (auto) 25.2 %; Mean Corpuscular Hemoglobin 30.2 pg (25.0-34.0); Mean Corpuscular Hgb Conc 33.9 g/dL (32.0-36.0); Mean Corpuscular Volume 89.2 fL (80.0-100.0); Monocytes # (auto) 0.96 K/uL (0.11-0.59); Neutrophils # (auto) 7.31 K/uL (1.40-6.50); Neutrophils % (auto) 61.1 %; Platelet Count 204 K/uL (130-400); Platelet Estimate Normal (Normal); RDW Coefficient of Variation 12.5 % (11.5-14.5); RDW Standard Deviation 41.1 fL (36.4-46.3); Red Blood Count 4.07 M/uL (4.20-5.40); White Blood Count 11.97 K/ul (4.8-10.8)
[2023-06-01] MEDS: METOPROLOL SUCC 25MG EXT REL TAB PO SCH (08:04)
[2023-06-01] MEDS: ATORVASTATIN 10 MG TAB PO SCH (08:05)
[2023-06-01] MEDS: ASPIRIN 81 MG ECTAB PO SCH (08:05)
[2023-06-01] MEDS: LOSARTAN POTASSIUM 50 MG TAB PO SCH (08:05)
[2023-06-01] MEDS: MULTIVITAMIN TAB PO SCH (08:05)
[2023-06-01] MEDS: LEVOTHYROXINE SODIUM 100 MCG TABLET PO SCH (08:05)
[2023-06-01 08:18] LABS: Partial Thromboplastin Ratio 1.4; Partial Thromboplastin Time 39.3 Seconds (21.0-31.0)
[2023-06-01] MEDS ORDERED: LOSARTAN POTASSIUM 50 MG TAB PO SCH (09:00)
--- NOTE | 2023-06-01 09:58 | Hospitalist Progress Note ---
Date of Service June 01, 2023 Assessment & Plan (1) Acute non-ST elevation myocardial infarction (NSTEMI): Plan: Chest pain has improved on medical therapy. Cont current care with heart catheterization planned for am. paroxysmal atrial tachycardia hyperlipidemia on statin Rx, chronic, stable. LDL is at goal hypothyroidism, chronic, stable Cont PCU monitoring. Aspirin, beta-angeline, statin for CAD prevention Continue IV heparin initiated at the ER N.p.o. after midnight DVT prophylaxis. IV heparin Full code was updated at bedside and all questions were answered. I spent a total [id number] coordinating, documenting, and providing care for this patient excluding time spent in the performance of separately billed services Lili Pierce DO [facility] Hospitalist Admission and Anticipated Discharge Date Admission Date: May 31, 2023 Subjective 62-year-old female with NSTEMI Chest pain has resolved at this point Continues on heparin Tolerating p.o. Reports a withdrawal headache from caffeine and was allowed 1 cup of black coffee No difficulties with shortness of breath. and patient and I discussed logistics of catheterization and what to expect pre and postop. Physical Exam Physical Exam: CONSTITUTIONAL: WNWD, vitals as above, generally well-appearing, NAD EYES: ormal conjunctivae, no scleral icterus ENT: external ear and nose normal, MMM NECK: trachea midline, RESPIRATORY: clear to auscultation bilaterally, no crackles, rales or wheezes, normal respiratory effort CARDIOVASCULAR: regular rate and rhythm, S1 and 2 heard without murmurs, gallops or rubs, no JVD, no peripheral edema CHEST: inspection of chest was normal GASTROINTESTINAL: soft, nontender, ND, no guarding MUSCULOSKELETAL: strength 5/5 throughout, head is normocephalic and atraumatic SKIN: warm and dry NEUROLOGIC: CN 2-12 grossly intact, no sensory deficit, normal cognition, normal speech, no tremor PSYCHIATRIC: alert cooperative and oriented to person, place and time. Euthymic mood, makes good eye contact, language grossly intact, recent and remote memory grossly intact. Results & Data Results & Data Vital Signs (Past 12 Hours) Vital Signs Pulse Pulse Resp BP BP Pulse Ox Pulse Ox 06/01/23 06:19 70 20 134/85 98 06/01/23 06:15 06/01/23 04:46 61 18 103/65 98 06/01/23 02:00 69 17 130/76 94 06/01/23 01:00 EST 66 16 116/79 94 06/01/23 00:00 69 20 144/88 H 93 05/31/23 23:44 69 22 133/78 93 05/31/23 23:00 97 O2 Del Method O2 Del Method 06/01/23 06:19 Room Air 06/01/23 06:15 Room Air 06/01/23 04:46 Room Air 06/01/23 02:00 Room Air 06/01/23 01:00 EST Room Air 06/01/23 00:00 Room Air 05/31/23 23:44 Room Air 05/31/23 23:00 Room Air Laboratory Results Short CBC 05/31/23 06/01/23 Range/Units 19:41 03:29 WBC 13.58 H 11.97 H (4.8-10.8) K/ul Hgb 12.4 12.3 (12.0-16.0) g/dl Hct 37.8 36.3 L (37.0-47.0) % Plt Count 276 204 (130-400) K/uL BMP 05/31/23 06/01/23 06/01/23 19:41 03:29 05:59 Sodium 140 TNP 140 Potassium 4.8 TNP 3.9 Chloride 109 H 108 H Carbon Dioxide 25 22 BUN 17 14 Creatinine 0.80 0.78 Glucose 101 H 98 Calcium 9.3 8.6 Liver Function 05/31/23 Range/Units 19:41 Total Bilirubin 0.7 (0.2-1.0) mg/dl AST 29 (13-39) U/L ALT 31 (7-52) U/L Alkaline Phosphatase 65 (34-104) U/L Albumin 4.3 (3.4-5.0) gm/dl Urine 06/01/23 Range/Units 00:28 Urine Color Yellow Urine Appearance Clear (Clear) Urine pH 5.5 (4.5-7.5) Ur Specific [place] 1.010 (1.000-1.030) Urine Protein Negative (Negative) Urine Glucose (UA) Negative (Negative) Medications Administered Current Inpatient Medications Acetaminophen (Acetaminophen 325 Mg Tab) 650 mg PO Q4H PRN PRN Reason: Pain or Fever Stop: 06/30/23 22:31 Aspirin (Aspirin 81 Mg Ectab) 81 mg PO DAILY [facility] Stop: 07/01/23 08:59 Last Admin: 06/01/23 08:05 Dose: 81 mg Atorvastatin Calcium ([facility]vastatin 10 Mg Tab) [facility]: 07/01/23 08:59 Last Admin: 06/01/23 08:05 Dose: 10 mg Heparin Sodium/Dextrose (Heparin Sodium/Dextrose) 25,000 units in 500 mls @ 16 mls/hr IV .Q24H [facility]; Protocol Stop: 06/30/23 20:59 Last Titration: 06/01/23 09:37 Dose: 850 units/hr, 17 mls/hr Promethazine HCl 6.25 mg/ (Sodium Chloride) 50.25 mls @ 201 mls/hr IV Q6H PRN PRN Reason: Nausea And Vomiting Stop: 06/30/23 21:37 Levothyroxine Sodium (Levothyroxine Sodium 100 Mcg Tablet) [facility]: 07/01/23 06:29 Last Admin: 06/01/23 08:05 Dose: 100 mcg Lorazepam (Lorazepam 0.5 Mg Tab) 0.5 mg PO TID PRN PRN Reason: Anxiety Stop: 06/30/23 21:37 Losartan Potassium (Losartan Potassium 50 Mg Tab) 100 mg PO [facility] Stop: 07/01/23 08:59 Last Admin: 06/01/23 08:05 Dose: 100 mg Metoprolol Succinate (Metoprolol Succ 25mg Ext Rel Tab) 25 mg PO [facility] Stop: 07/01/23 08:59 Last Admin: 06/01/23 08:04 Dose: 25 mg Morphine Sulfate (Morphine Sulfate 2 Mg/Ml Carp) 2 mg IV Q3H PRN PRN Reason: Pain Stop: 06/14/23 21:37 Multivitamins (Multivitamin Tab) 1 tab PO [facility] Stop: 07/01/23 08:59 Last Admin: 06/01/23 08:05 Dose: 1 tab Nitroglycerin (Nitroglycerin Sl 0.4 Mg/Tab Tab) 0.4 mg SL Q5M PRN PRN Reason: Chest Pain Stop: 06/30/23 22:31 Last Admin: 06/01/23 03:53 Dose: 0.4 mg Tramadol HCl (Tramadol Hcl 50 Mg Tablet) 25 - 50 mg PO Q4H PRN PRN Reason: Pain Stop: 06/30/23 21:37
--- NOTE | 2023-06-01 11:44 | Cardiology Consultation ---
Date of Consultation June 01, 2023 Assessment & Plan (1) Acute non-ST elevation myocardial infarction (NSTEMI): Plan 62-year-old female with risk factors of hypertension and dyslipidemia who presented with symptoms of chest pressure nausea and burping. Troponin elevated in a pattern consistent with non-ST segment elevation myocardial infarction. EKG is without acute ST elevation or dramatic change. Echocardiogram with subtle hypokinesis of the posterior wall and mid anterior wall with otherwise preserved LV function. Patient properly anticoagulated IV heparin. Has received aspirin, beta-angeline. Already on statin and Discussed findings in detail with patient will recommend proceeding to diagnostic coronary angiography in a.m. Acutely if any signs of instability Patient kept n.p.o. after midnight orders placed Procedure risk explained in detail to patient History of Present Illness Reason for Consultation: Chest pressure pain, elevated troponin Requesting Physician: Dr. Pierce Attending Physician: Lili Pierce, History of Present Illness Patient is a 62-year-old female who is underlying cardiac concerns include 1. Paroxysmal atrial tachycardia 2. Hypertension 3. Hyperlipidemia on therapy. Patient presents this admission noting yesterday developed sense of weakness and malaise in the a.m. followed by intermittent episodes of chest heaviness and chest tightness "just not feeling well" intermittent burping and nausea with symptoms Sought ER evaluation where symptoms were relieved with sublingual nitroglycerin Troponin elevated Initial EKG sinus rhythm incomplete right bundle branch block left anterior fascicular block with minor ST depression no ST elevation Patient referred for further evaluation. This morning without ongoing complaint. Appropriately anticoagulated on medical therapies as indicated. No chest pains, shortness of breath. No prior history of myocardial infarction angina or congestive heart failure. Patient noted no arrhythmias. No recent fevers chills infections. Received flu shot earlier this week. Appetite and weight are stable. Generally active walks daily No bleeding difficulties No difficulty swallowing or dental issues No prior difficulties with sedation or anesthesia Allergies Allergy/AdvReac Type Severity Reaction Status Date / Time latex AdvReac Mild hives Verified 11/05/21 14:17 Home Medications Medication Instructions Recorded Confirmed Type multivitamin 1 tab PO QAM 08/12/18 06/01/23 History losartan 100 mg tablet 100 mg PO QAM 03/24/19 06/01/23 History atorvastatin 10 mg tablet 10 mg PO QAM 06/01/23 06/01/23 History levothyroxine 100 mcg tablet 100 mcg PO QAM 06/01/23 06/01/23 History metoprolol succinate 25 mg 25 mg PO QAM 06/01/23 06/01/23 History tablet,extended release 24 hr Patient History Medical History (Updated 06/01/23 @ 11:52 by Jon Barbosa MD) History of herpes simplex infection History of female infertility Hypothyroidism Hypertension Surgical History History of oral surgery History of hemorrhoidectomy History of hysterectomy supracervical Family History Denies family history of Ovarian cancer Breast cancer Colorectal cancer Social History Smoking Status: Never smoker Second Hand Exposure: No; Do You Dip or Chew Tobacco: No; Hx Alcohol Use: Yes Alcohol type: wine Hx Substance Use: No Preferred Language: Syriac Communication Ability: Effective Director Decision Support Required: No Beliefs That Will Affect Care: None Current Living Situation: Spouse Other Information That Helps Us Care for You: No Feels Safe at Home: Yes Safety Concerns: Feels Safe At This Time Assistive Devices: Glasses Review of Systems Review of Systems: All systems reviewed & are unremarkable except as noted in HPI & below Physical Exam Constitutional: WD/WN, vitals as above Eyes: PERRL, conjunctivae normal, anicteric sclerae ENMT: external ear and nose normal, oropharynx normal Neck: trachea midline, no thyromegaly Respiratory: normal respiratory effort, lungs clear to auscultation Cardiovascular: Rate/Rhythm: regular rate and regular rhythm Heart Sounds: normal S1 and normal S2; no gallop and no murmur Palpation: normal PMI Vessels: normal carotid upstroke and radial pulses present; no JVD and no carotid bruit Extremities: no edema Gastrointestinal (Abdomen): normal bowel sounds, soft, nontender, no hepatosplenomegaly Musculoskeletal: no cyanosis or clubbing, extremities motor strength 5/5 Skin: no rashes, warm and dry Neurologic: PERRL, EOMI, accommodation nl, no face palsy, no dysarthria Psychiatric: A+Ox3, euthymic affect Results & Data Vital Signs (Past 12 Hours) Vital Signs Pulse Pulse Resp BP BP Pulse Ox O2 Del Method 06/01/23 10:23 69 06/01/23 06:19 70 20 134/85 98 Room Air 06/01/23 06:15 Room Air 06/01/23 04:46 61 18 103/65 98 Room Air 06/01/23 02:00 69 17 130/76 94 Room Air 06/01/23 01:00 EST 66 16 116/79 94 Room Air Laboratory Results Laboratory Results - last 24 hr 05/31/23 05/31/23 05/31/23 17:48 19:41 22:45 WBC 13.58 H RBC 4.14 L Hgb 12.4 Hct 37.8 MCV 91.3 MCH 30.0 MCHC 32.8 RDW Std Deviation 41.5 RDW Coeff of [place] 12.5 Plt Count 276 MPV 10.3 Immature Gran % (Auto) 0.4 Neut % (Auto) 70.7 Lymph % (Auto) 17.6 [place] % (Auto) 7.1 Eos % (Auto) 3.7 Baso % (Auto) 0.5 Neut # (Auto) 9.59 H Lymph # (Auto) 2.39 [place] # (Auto) 0.97 H Eos # (Auto) 0.50 Baso # (Auto) 0.07 Immature Gran # (Auto) 0.06 Platelet Estimate PT 11.2 INR 1.0 APTT 28.3 PTT Ratio 1.0 Sodium 140 Potassium 4.8 Chloride 109 H Carbon Dioxide 25 Anion Gap 6 BUN 17 Creatinine 0.80 Est Cr Clr Drug Dosing 76.2 Est GFR ( Amer) 91.6 Est GFR (Non-Af Amer) 79.0 BUN/Creatinine Ratio 21.3 H Glucose 101 H Calcium 9.3 Magnesium 2.1 Total Bilirubin 0.7 AST 29 ALT 31 Alkaline Phosphatase 65 Troponin I High Sens 986.9 H* 1048.5 H* Total Protein 7.2 Albumin 4.3 Globulin 2.9 Albumin/Globulin Ratio 1.5 Triglycerides Cholesterol LDL Cholesterol, Calc VLDL Cholesterol, Calc HDL Cholesterol Cholesterol/HDL Ratio Lipase 14 TSH 4.175 Urine Color Urine Appearance Urine pH Ur Specific [place] Urine Protein Urine Glucose (UA) Urine Ketones Urine Blood Urine Nitrite Urine Bilirubin Urine Urobilinogen Ur Leukocyte Esterase Nasal Screen MRSA (PCR) Adenovirus (PCR) Not Detected B. pertussis DNA (PCR) Not Detected B.parapertussis DNA PCR Not Detected C. pneumoniae DNA (PCR) Not Detected Coronavirus OC43 (PCR) Not Detected Coronavirus HKU1 (PCR) Not Detected Coronavirus 229E (PCR) Not Detected SARS-CoV-2 (PCR) Not Detected Coronavirus NL63 (PCR) Not Detected Human Metapneumovir PCR Not Detected Influenza Type A (PCR) Not Detected Influenza Type B (PCR) Not Detected M. pneumoniae (PCR) Not Detected Parainfluenza 1 (PCR) Not Detected Parainfluenza 2 (PCR) Not Detected Parainfluenza 3 (PCR) Not Detected Parainfluenza 4 (PCR) Not Detected RSV (PCR) Not Detected Entero/Rhino (PCR) Not Detected 06/01/23 06/01/23 06/01/23 00:28 03:29 05:59 WBC 11.97 H RBC 4.07 L Hgb 12.3 Hct 36.3 L MCV 89.2 MCH 30.2 MCHC 33.9 RDW Std Deviation 41.1 RDW Coeff of [place] 12.5 Plt Count 204 MPV 11.0 Immature Gran % (Auto) 0.4 Neut % (Auto) 61.1 Lymph % (Auto) 25.2 [place] % (Auto) 8.0 Eos % (Auto) 4.7 Baso % (Auto) 0.6 Neut # (Auto) 7.31 H Lymph # (Auto) 3.02 [place] # (Auto) 0.96 H Eos # (Auto) 0.56 H Baso # (Auto) 0.07 Immature Gran # (Auto) 0.05 Platelet Estimate Normal PT INR APTT PTT Ratio Sodium TNP 140 Potassium TNP 3.9 Chloride 108 H Carbon Dioxide 22 Anion Gap TNP BUN 14 Creatinine 0.78 Est Cr Clr Drug Dosing 74.9 Est GFR ( Amer) 94.4 Est GFR (Non-Af Amer) 81.5 BUN/Creatinine Ratio 17.9 Glucose 98 Calcium 8.6 Magnesium Total Bilirubin AST ALT Alkaline Phosphatase Troponin I High Sens 516.6 H* D Total Protein Albumin Globulin Albumin/Globulin Ratio Triglycerides 69 Cholesterol 165 LDL Cholesterol, Calc 91 VLDL Cholesterol, Calc 14 HDL Cholesterol 60 Cholesterol/HDL Ratio 2.8 Lipase TSH Urine Color Yellow Urine Appearance Clear Urine pH 5.5 Ur Specific [place] 1.010 Urine Protein Negative Urine Glucose (UA) Negative Urine Ketones Negative Urine Blood Negative Urine Nitrite Negative Urine Bilirubin Negative Urine Urobilinogen Negative Ur Leukocyte Esterase Negative Nasal Screen MRSA (PCR) Adenovirus (PCR) B. pertussis DNA (PCR) B.parapertussis DNA PCR C. pneumoniae DNA (PCR) Coronavirus OC43 (PCR) Coronavirus HKU1 (PCR) Coronavirus 229E (PCR) SARS-CoV-2 (PCR) Coronavirus NL63 (PCR) Human Metapneumovir PCR Influenza Type A (PCR) Influenza Type B (PCR) M. pneumoniae (PCR) Parainfluenza 1 (PCR) Parainfluenza 2 (PCR) Parainfluenza 3 (PCR) Parainfluenza 4 (PCR) RSV (PCR) Entero/Rhino (PCR) 06/01/23 06/01/23 07:37 08:03 WBC RBC Hgb Hct MCV MCH MCHC RDW Std Deviation RDW Coeff of [place] Plt Count MPV Immature Gran % (Auto) Neut % (Auto) Lymph % (Auto) [place] % (Auto) Eos % (Auto) Baso % (Auto) Neut # (Auto) Lymph # (Auto) [place] # (Auto) Eos # (Auto) Baso # (Auto) Immature Gran # (Auto) Platelet Estimate PT INR APTT 39.3 H PTT Ratio 1.4 Sodium Potassium Chloride Carbon Dioxide Anion Gap BUN Creatinine Est Cr Clr Drug Dosing Est GFR ( Amer) Est GFR (Non-Af Amer) BUN/Creatinine Ratio Glucose Calcium Magnesium Total Bilirubin AST ALT Alkaline Phosphatase Troponin I High Sens Total Protein Albumin Globulin Albumin/Globulin Ratio Triglycerides Cholesterol LDL Cholesterol, Calc VLDL Cholesterol, Calc HDL Cholesterol Cholesterol/HDL Ratio Lipase TSH Urine Color Urine Appearance Urine pH Ur Specific [place] Urine Protein Urine Glucose (UA) Urine Ketones Urine Blood Urine Nitrite Urine Bilirubin Urine Urobilinogen Ur Leukocyte Esterase Nasal Screen MRSA (PCR) Pending Adenovirus (PCR) B. pertussis DNA (PCR) B.parapertussis DNA PCR C. pneumoniae DNA (PCR) Coronavirus OC43 (PCR) Coronavirus HKU1 (PCR) Coronavirus 229E (PCR) SARS-CoV-2 (PCR) Coronavirus NL63 (PCR) Human Metapneumovir PCR Influenza Type A (PCR) Influenza Type B (PCR) M. pneumoniae (PCR) Parainfluenza 1 (PCR) Parainfluenza 2 (PCR) Parainfluenza 3 (PCR) Parainfluenza 4 (PCR) RSV (PCR) Entero/Rhino (PCR)
[2023-06-01] MEDS ORDERED: SODIUM CHLORIDE 0.9% 1,000 ML IV SCH (12:00)
[2023-06-01 17:46] LABS: Partial Thromboplastin Ratio 1.4; Partial Thromboplastin Time 39.6 Seconds (21.0-31.0)
--- NOTE | 2023-06-01 22:05 | Electrocardiogram Report ---
Test Reason : Blood Pressure : / mmHG Vent. Rate : 070 BPM Atrial Rate : 070 BPM P-R Int : 158 ms QRS Dur : 098 ms QT Int : 400 ms P-R-T Axes : 044 -47 036 degrees QTc Int : 432 ms Normal sinus rhythm Pulmonary disease pattern Incomplete right bundle branch block Left anterior fascicular block Abnormal ECG When compared with ECG of 20-AUG-2018 10:50, QRS axis Shifted left Confirmed by Bradley Mckeon ([id number]) on 06/01/2023 10:05:18 PM Referred By: REFERRED SELF Confirmed By:Bradley Mckeon
--- NOTE | 2023-06-01 22:13 | Electrocardiogram Report ---
Test Reason : Blood Pressure : / mmHG Vent. Rate : 067 BPM Atrial Rate : 067 BPM P-R Int : 168 ms QRS Dur : 092 ms QT Int : 402 ms P-R-T Axes : 063 -44 042 degrees QTc Int : 424 ms Normal sinus rhythm Left axis deviation Pulmonary disease pattern Incomplete right bundle branch block Abnormal ECG When compared with ECG of 31-MAY-2023 17:28, (unconfirmed) No significant change was found Confirmed by Bradley Mckeon ([id number]) on 06/01/2023 10:13:37 PM Referred By: REFERRED SELF Confirmed By:Bradley Mckeon
--- NOTE | 2023-06-01 22:18 | Electrocardiogram Report ---
Test Reason : Blood Pressure : / mmHG Vent. Rate : 074 BPM Atrial Rate : 074 BPM P-R Int : 190 ms QRS Dur : 094 ms QT Int : 402 ms P-R-T Axes : 061 -49 048 degrees QTc Int : 446 ms Normal sinus rhythm Pulmonary disease pattern Incomplete right bundle branch block Left anterior fascicular block Abnormal ECG When compared with ECG of 31-MAY-2023 20:50, (unconfirmed) No significant change was found Confirmed by Bradley Mckeon ([id number]) on 06/01/2023 10:18:03 PM Referred By: REFERRED SELF Confirmed By:Bradley Mckeon
[2023-06-01] MEDS: HEPARIN SODIUM/DEXTROSE 25,000 UNITS/500 ML BAG IV SCH (22:21)
[2023-06-02 01:07] LABS: Partial Thromboplastin Ratio 1.6
[2023-06-02 01:22] LABS: Partial Thromboplastin Time 46.1 Seconds (21.0-31.0)
[2023-06-02 04:38] LABS: Hematocrit (blood only) 35.1 % (37.0-47.0); Hemoglobin 11.7 g/dl (12.0-16.0); Mean Corpuscular Hemoglobin 29.8 pg (25.0-34.0); Mean Corpuscular Hgb Conc 33.3 g/dL (32.0-36.0); Mean Corpuscular Volume 89.5 fL (80.0-100.0); Mean Platelet Volume 11.3 fL (9.4-12.4); Platelet Count 230 K/uL (130-400); RDW Coefficient of Variation 12.3 % (11.5-14.5); RDW Standard Deviation 40.5 fL (36.4-46.3); Red Blood Count 3.92 M/uL (4.20-5.40); White Blood Count 10.19 K/ul (4.8-10.8)
[2023-06-02 04:50] LABS: Calcium 8.7 mg/dl (8.6-10.3); Creatinine Clr Calc Pharmacy 58.3 ml/min; Est GFR (African American) 69.9 ml/min; Est GFR (Non-African American) 60.3 ml/min; Potassium 3.7 mmol/L (3.5-5.1)
[2023-06-02] MEDS: SODIUM CHLORIDE 0.9% 1,000 ML IV SCH ×2 (06:01→18:35)
[2023-06-02] MEDS: LEVOTHYROXINE SODIUM 100 MCG TABLET PO SCH (06:02)
--- NOTE | 2023-06-02 08:36 | Hospitalist Progress Note ---
Date of Service June 02, 2023 Assessment & Plan (1) Acute non-ST elevation myocardial infarction (NSTEMI): Plan: Chest pain has improved on medical therapy. Cont current care with heart catheterization planned for am. paroxysmal atrial tachycardia hyperlipidemia on statin Rx, chronic, stable. LDL is at goal hypothyroidism, chronic, stable Cont PCU monitoring. Aspirin, beta-angeline, statin for CAD prevention Continue IV heparin initiated at the ER N.p.o. after midnight DVT prophylaxis. IV heparin Full code was updated at bedside and all questions were answered. I spent a total [id number] coordinating, documenting, and providing care for this patient excluding time spent in the performance of separately billed services [facility]ili [facility] and Anticipated Discharge Date Admission Date: May 31, 2023 Subjective 62-year-old female with NSTEMI Chest pain has resolved at this point Continues on heparin Tolerating p.o. Reports a withdrawal headache from caffeine and was allowed 1 cup of black coffee No difficulties with shortness of breath. and patient and I discussed logistics of catheterization and what to expect pre and postop. Physical Exam Physical Exam: CONSTITUTIONAL: WNWD, vitals as above, generally well-appearing, NAD EYES: ormal conjunctivae, no scleral icterus ENT: external ear and nose normal, MMM NECK: trachea midline, RESPIRATORY: clear to auscultation bilaterally, no crackles, rales or wheezes, normal respiratory effort CARDIOVASCULAR: regular rate and rhythm, S1 and 2 heard without murmurs, gallops or rubs, no JVD, no peripheral edema CHEST: inspection of chest was normal GASTROINTESTINAL: soft, nontender, ND, no guarding MUSCULOSKELETAL: strength 5/5 throughout, head is normocephalic and atraumatic SKIN: warm and dry NEUROLOGIC: CN 2-12 grossly intact, no sensory deficit, normal cognition, normal speech, no tremor PSYCHIATRIC: alert cooperative and oriented to person, place and time. Euthymic mood, makes good eye contact, language grossly intact, recent and remote memory grossly intact. Results & Data Results & Data Vital Signs (Past 12 Hours) Vital Signs Temp Pulse Resp BP Pulse Ox O2 Del Method 06/02/23 08:29 36.8 C 70 16 124/49 L 95 Room Air 06/02/23 03:52 37 C 68 19 117/61 96 Room Air 06/02/23 00:00 36.8 C 70 18 122/52 L 94 Room Air Laboratory Results Short CBC 06/02/23 Range/Units 03:37 WBC 10.19 (4.8-10.8) K/ul Hgb 11.7 L (12.0-16.0) g/dl Hct 35.1 L (37.0-47.0) % Plt Count 230 (130-400) K/uL BMP 06/02/23 03:37 Sodium 137 Potassium 3.7 Chloride 105 Carbon Dioxide 25 BUN 19 Creatinine 1.00 Glucose 102 H Calcium 8.7 Medications Administered Current Inpatient Medications Acetaminophen (Acetaminophen 325 Mg Tab) 650 mg PO Q4H PRN PRN Reason: Pain or Fever Stop: 06/30/23 22:31 Aspirin (Aspirin 81 Mg Ectab) 81 mg PO DAILY [facility] Stop: 07/01/23 08:59 Last Admin: 06/01/23 08:05 Dose: 81 mg Atorvastatin Calcium (Atorvastatin 10 Mg Tab) 10 mg PO QAM [facility] Stop: 07/01/23 08:59 Last Admin: 06/01/23 08:05 Dose: 10 mg Heparin Sodium/Dextrose (Heparin Sodium/Dextrose) 25,000 units in 500 mls @ 18 mls/hr IV .Q24H [facility]; Protocol Stop: 06/30/23 20:59 Last Admin: 06/01/23 22:21 Dose: 900 units/hr, 18 mls/hr Promethazine HCl 6.25 mg/ (Sodium Chloride) 50.25 mls @ 201 mls/hr IV Q6H PRN PRN Reason: Nausea And Vomiting Stop: 06/30/23 21:37 Sodium Chloride (Nss) 1,000 mls @ 80 mls/hr IV .[id number] [facility] Stop: 07/02/23 05:59 Last Admin: 06/02/23 06:01 Dose: 80 mls/hr Levothyroxine Sodium (Levothyroxine Sodium 100 Mcg Tablet) 100 mcg PO DAILYBB [facility] Stop: 07/01/23 06:29 Last Admin: 06/02/23 06:02 Dose: Not Given Lorazepam (Lorazepam 0.5 Mg Tab) 0.5 mg PO TID PRN PRN Reason: Anxiety Stop: 06/30/23 21:37 Losartan Potassium (Losartan Potassium 50 Mg Tab) [facility] [place] [facility]: 07/01/23 08:59 Last Admin: 06/01/23 08:05 Dose: 100 mg Metoprolol Succinate (Metoprolol Succ 25mg Ext Rel Tab) 25 mg PO [facility] Stop: 07/01/23 08:59 Last Admin: 06/01/23 08:04 Dose: 25 mg Morphine Sulfate (Morphine Sulfate 2 Mg/Ml Carp) 2 mg IV Q3H PRN PRN Reason: Pain Stop: 06/14/23 21:37 Multivitamins (Multivitamin Tab) 1 tab PO [facility] Stop: 07/01/23 08:59 Last Admin: 06/01/23 08:05 Dose: 1 tab Nitroglycerin (Nitroglycerin Sl 0.4 Mg/Tab Tab) 0.4 mg SL Q5M PRN PRN Reason: Chest Pain Stop: 06/30/23 22:31 Last Admin: 06/01/23 03:53 Dose: 0.4 mg Tramadol HCl (Tramadol Hcl 50 Mg Tablet) 25 - 50 mg PO Q4H PRN PRN Reason: Pain Stop: 06/30/23 21:37
[2023-06-02] MEDS: LOSARTAN POTASSIUM 50 MG TAB PO SCH (08:55)
[2023-06-02] MEDS: MULTIVITAMIN TAB PO SCH (08:55)
[2023-06-02] MEDS: METOPROLOL SUCC 25MG EXT REL TAB PO SCH (08:55)
[2023-06-02] MEDS: ATORVASTATIN 10 MG TAB PO SCH (08:55)
[2023-06-02] MEDS: ASPIRIN 81 MG ECTAB PO SCH (08:56)
--- NOTE | 2023-06-02 11:07 | Cardiology Progress Note ---
Date of Service June 02, 2023 Assessment & Plan (1) Acute non-ST elevation myocardial infarction (NSTEMI): Plan 62-year-old female with risk factors of hypertension and dyslipidemia who presented with symptoms of chest pressure nausea and burping. Troponin elevated in a pattern consistent with non-ST segment elevation myocardial infarction. EKG is without acute ST elevation or dramatic change. Echocardiogram with subtle hypokinesis of the posterior wall and mid anterior wall with otherwise preserved LV function. Patient properly anticoagulated IV heparin. Has received aspirin, beta-angeline. Already on statin and Discussed findings in detail with patient will recommend proceeding to diagnostic coronary angiography in a.m. Acutely if any signs of instability Patient kept n.p.o. after midnight orders placed Procedure risk explained in detail to patient 06/02/2023 Assessment and plan as above no symptoms overnight Plan diagnostic coronary angiography this morning. Procedure and risks of cath" possible coronary intervention explained in detail Admission and Anticipated Discharge Date Admission Date: May 31, 2023 Subjective Patient seen and examined, chart, medications reviewed. No further chest pain or shortness of breath. No dizziness or lightheadedness. IV hydration begun this morning Review of Systems Review of Systems: All systems reviewed & are unremarkable except as noted in Subjective Physical Exam Constitutional: WD/WN, vitals as above Eyes: PERRL, conjunctivae normal, anicteric sclerae ENMT: external ear and nose normal, oropharynx normal Neck: trachea midline, no thyromegaly Respiratory: normal respiratory effort, lungs clear to auscultation Cardiovascular: Rate/Rhythm: regular rate and regular rhythm Heart Sounds: normal S1 and normal S2; no gallop and no murmur Palpation: normal PMI Vessels: normal carotid upstroke and radial pulses present; no JVD and no carotid bruit Extremities: no edema Gastrointestinal (Abdomen): normal bowel sounds, soft, nontender, no hepatosplenomegaly Musculoskeletal: no cyanosis or clubbing, extremities motor strength 5/5 Skin: no rashes, warm and dry Neurologic: PERRL, EOMI, accommodation nl, no face palsy, no dysarthria Psychiatric: A+Ox3, euthymic affect Results & Data Vital Signs (Past 12 Hours) Vital Signs Temp Pulse Pulse Resp BP Pulse Ox O2 Del Method 06/02/23 08:29 36.8 C 70 16 124/49 L 95 Room Air 06/02/23 07:00 63 06/02/23 03:52 37 C 68 19 117/61 96 Room Air 06/02/23 00:00 36.8 C 70 18 122/52 L 94 Room Air Laboratory Results Laboratory Results - last 24 hr 06/01/23 06/01/23 06/01/23 08:03 15:35 23:52 WBC RBC Hgb Hct MCV MCH MCHC RDW Std Deviation RDW Coeff of Sterling Plt Count MPV APTT 39.6 H 46.1 H* PTT Ratio 1.4 1.6 Sodium Potassium Chloride Carbon Dioxide Anion Gap BUN Creatinine Est Cr Clr Drug Dosing Est GFR ( Amer) Est GFR (Non-Af Amer) BUN/Creatinine Ratio Glucose Calcium Magnesium Nasal Screen MRSA (PCR) Negative 06/02/23 03:37 WBC 10.19 RBC 3.92 L Hgb 11.7 L Hct 35.1 L MCV 89.5 MCH 29.8 MCHC 33.3 RDW Std Deviation 40.5 RDW Coeff of Sterling 12.3 Plt Count 230 MPV 11.3 APTT PTT Ratio Sodium 137 Potassium 3.7 Chloride 105 Carbon Dioxide 25 Anion Gap 7 BUN 19 Creatinine 1.00 Est Cr Clr Drug Dosing 58.3 Est GFR ( Amer) 69.9 Est GFR (Non-Af Amer) 60.3 BUN/Creatinine Ratio 19.0 Glucose 102 H Calcium 8.7 Magnesium 2.0 Nasal Screen MRSA (PCR)
--- NOTE | 2023-06-02 12:15 | Pre Anesthesia Assessment ---
Date of Service June 02, 2023 Pre Sedation Assessment Vital Signs Temp Pulse Pulse Pulse Resp BP Pulse Ox 06/02/23 08:29 36.8 C 70 16 124/49 L 95 06/02/23 07:00 63 06/02/23 03:52 37 C 68 19 117/61 96 06/02/23 00:00 36.8 C 70 18 122/52 L 94 06/01/23 20:00 36.8 C 78 17 129/76 95 06/01/23 16:29 83 14 117/68 95 06/01/23 15:46 69 O2 Del Method 06/02/23 08:29 Room Air 06/02/23 07:00 06/02/23 03:52 Room Air 06/02/23 00:00 Room Air 06/01/23 20:00 Room Air 06/01/23 16:29 Room Air 06/01/23 15:46 Cardiovascular RRR, no murmur, no edema no JVD no edema Respiratory normal respiratory effort, lungs clear to auscultation Pre-Sedation Airway Assessment Smoking Status: Never smoker Mallampati Class: III ASA: ASA3 Procedure Planning Contraindications for Sedation: none Current Medications Reviewed: Yes Notes The planned sedation has been discussed with the patient. Informed Consent was obtained. I have identified the patient, determined the appropriateness of sedation and have assessed the patient immediately prior to the procedure. All medicine(s) and interventions are by my order.
[2023-06-02] MEDS ORDERED: niCARdipine HCL INJ 2.5 MG/ML 10 ML AMP ONE (16:03)
[2023-06-02] MEDS ORDERED: HEPARIN (PORCINE) 1000 UNIT/ML 10 ML (CATH LAB USE ONLY) ONE (16:03)
[2023-06-02] MEDS ORDERED: fentaNYL citrate PF 100 MCG/2 ML VIAL ONE (16:04)
[2023-06-02] MEDS ORDERED: MIDAZOLAM HCL 1 MG/ML 2ML VIAL ONE (16:04)
[2023-06-02] MEDS ORDERED: NITROGLYCERIN/D5W 100MCG/ML 20ML SYR ONE (16:05)
--- NOTE | 2023-06-02 16:34 | Post Anesthesia Assessment ---
Date of Service June 02, 2023 Post Sedation Assessment Vital Signs Temp Pulse Pulse Resp BP Pulse Ox O2 Del Method 06/02/23 13:17 68 18 141/63 H 96 Room Air 06/02/23 11:00 36.8 C 60 20 126/66 96 Room Air 06/02/23 08:29 36.8 C 70 16 124/49 L 95 Room Air 06/02/23 07:00 63 06/02/23 03:52 37 C 68 19 117/61 96 Room Air 06/02/23 00:00 36.8 C 70 18 122/52 L 94 Room Air 06/01/23 20:00 36.8 C 78 17 129/76 95 Room Air Recovery Score Activity: Moves 4 extremities Respiration: Deep Breath/Cough Circulation: +/-20% PreAnes Value Consciousness: Fully Awake Oxygen Saturation: > 92% On Room Air Discharge Sedation Level of Care: Phase I Post Sedation Plan On clinical assessment, the patient appears to have tolerated the sedation without complications. Patient is recovering as anticipated. Patient will continue to be monitored by nursing and may be discharged when sedation discharge criteria are met per below protocol. Upon Completions of procedure up to 15 minutes continue every 5 minute vital signs and the P.A.R. score; then discharge to a Phase I or Fast Track to Phase II per the following guidelines: * Discharge Patient to appropriate Phase II area if PAR is 8 or greater or return to pre- procedure baseline. The post - procedure orders will be as directed. * If PAR score is less than 8 or not return to pre-procedure baseline then patient will follow Phase I monitoring till PAR is reached for Phase II. The Phase I may be done in procedure room or may call to secure a Phase I area. * If naloxone or flumazenil are used for reversal, hold in Phase I for continued monitoring from when last reversal dose was given for a minimum of 60 minutes or longer pending the nurse and/or physician discretion of patient condition before discharge to Phase II. Please call the Sedation Physician to re-evaluate and complete post-note for discharge to Phase II area. Do NOT discharge from procedure sedation or Phase 1 until post- sedation evaluation note is complete by procedure /sedation MD Sedation Discharge Instructions to be given to the patient at discharge to home.
--- NOTE | 2023-06-02 16:41 | Cardiac Catheterization ---
Cardiac Cath Procedure Brief Procedure Date June 02, 2023 Pre-Procedure Diagnosis Pre-Procedure Diagnosis: Angina and Positive Stress Test AUC Score AUC Score: 8 Post-Procedure Diagnosis Post-Procedure Diagnosis: Normal Coronary Arteries Procedure(s) Performed Procedure(s) Performed: Coronary Angiography, Left Heart Cath and LV Angiography Route Driver Salesperson Jon Barbosa MD Track Fitter(s) Hayden Daniels Estimated Blood Loss Estimated Blood Loss: <15cc Medication(s) Medication(s): Fentanyl (12.5 mcg IV), Heparin (5000 units IV), Lidocaine 1% (Local infiltration access site), Nicardipine (250 mcg intra-arterial after arterial sheath insertion) and Versed (1 mg IV) Preliminary Findings Impression: Normal coronaries with type I left anterior descending Procedure: Left heart catheterization, coronary, LV angiography via right radial access Catheters: 6 Palau[place] long glide sheath, 5 [place] , 5 [place] straight pigtail Procedures: None Recommendations Recommendations: Medical Therapy and/or Counseling Specimens Specimens: None Fluids (cc crystalloids) Fluids (cc crystalloids): 73 Anesthesia Start time 1611, stop time 1629 Procedural Complication(s) None Disposition PCU
--- NOTE | 2023-06-02 17:12 | Cardiac Catheterization ---
Cardiac Cath Procedure Full Procedure Date June 02, 2023 Pre-Procedure Diagnosis Pre-Procedure Diagnosis: Angina and Positive Stress Test AUC Score AUC Score: 8 Post-Procedure Diagnosis Post-Procedure Diagnosis: Normal Coronary Arteries Procedure(s) Performed Procedure(s) Performed: Coronary Angiography, Left Heart Cath and LV Angiography Rigging And Controls Aircraft Mechanic Jon Barbosa MD Machine Shop Lead Man(s) Hayden Daniels Estimated Blood Loss Estimated Blood Loss: <15cc Medication(s) Medication(s): Fentanyl (12.5 mcg IV), Heparin (5000 units IV), Lidocaine 1% (Local infiltration access site), Nicardipine (250 mcg intra-arterial after arterial sheath insertion) and Versed (1 mg IV) Summary of Findings Impression: Normal coronaries with type I left anterior descending Procedure: Left heart catheterization, coronary, LV angiography via right radial access Catheters: 6 [place]rugu[place] long glide sheath, 5 [place] , 5 [place] straight pigtail Procedure note: None Coronary angiography: Right dominant anatomy Left main: Short, free of disease Left anterior descending: Type I vessel. It gives rise to a small first diagonal and a large second diagonal at the end of its proximal third then continues to and short of the apex. There are minor luminal irregularities in the distal vessel there is no obstructive disease. A large diagonal branch has a mild n physiologic narrowing at its origin Left circumflex: Moderately large nondominant vessel. Gives rise to a small high marginal and 2 large obtuse marginal branches and a posterolateral branch there is no disease in the left circumflex Right coronary artery: Moderate caliber dominant distribution. Gives rise to a sinoatrial branch to right ventricular branches in its midportion and then courses to give rise to a long posterior descending artery and a bifurcating terminal posterior ventricular branch. There is no disease in the right coronary artery LV angiography: Limited injection reveals normal LV function subtle hypokinesis posterior wall base no mitral insufficiency LVEDP 15 Hemodynamics Rest Ao:: 146/72/106 Final Ao: 145/73/104 LV: 142/-1/15 Recommendations Recommendations: Medical Therapy and/or Counseling Specimens Specimens: None Radiation Exposure (mGy) 287 Contrast (mls) 75 Fluids (cc crystalloids) Fluids (cc crystalloids): 73 Anesthesia Start time 1611, stop time 1629 Procedural Complication(s) None Disposition PCU I attest to the content of the Intraoperative Record and any orders documented therein. Any exceptions are noted below. ACC Data: Filament Cutter Cardiac Status Clinical evaluation leading to the procedure 62-year-old female presented with symptoms of chest pressure and chest discomfort/indigestion with elevated troponin CAD Presenation: Unstable angina Anginal Classification: CCS III Heart Failure: No Cardiogenic Shock within 24 Hours: No Cardiac Arrest within 24 Hours: No Imaging Studies Past 6 Months: Yes Stress Studies Past 6 Months: No Standard Exercise Test: No Stress Echocardiogram: No Stress Testing w/SPECT MPI: No Cardiac CTA: No Coronary Anatomy Dominant: Right Left Main (% Stenosis): Normal LAD (% Stenosis): Normal D1 (% Stenosis): Normal D2 (% Stenosis): Normal (Mild physiologic taper at its origin) OM1 (% Stenosis): Normal OM2 (% Stenosis): Normal OM3 (% Stenosis): Normal RCA (% Stenosis): Normal R PDA (% Stenosis): Normal R PL1 (% Stenosis): Normal Left Ventricular Angiography EF (%): 60 Mitral Regurgitation: None Diagnostic Physicians Name: Jon Barbosa MD Status: Urgent Closure Device Percutaneous Entry Location: Radial Closure Device: Radial Band Recommendations: Medical Therapy and/or Counseling
--- NOTE | 2023-06-03 13:35 | Electrocardiogram Report ---
Test Reason : Blood Pressure : / mmHG Vent. Rate : 066 BPM Atrial Rate : 066 BPM P-R Int : 196 ms QRS Dur : 096 ms QT Int : 420 ms P-R-T Axes : 110 235 106 degrees QTc Int : 440 ms Suspect arm lead reversal, interpretation assumes no reversal Normal sinus rhythm Right superior axis deviation Incomplete right bundle branch block Abnormal ECG When compared with ECG of 01-JUN-2023 03:49, Questionable change in QRS axis Nonspecific T wave abnormality now evident in Lateral leads Confirmed by William Ko ([id number]) on 06/03/2023 1:35:20 PM Referred By: REFERRED SELF Confirmed By:William Ko
--- OUTSIDE RECORDS SUMMARY | 2023-06-06 11:20 | External Medical Summary | Summary of Care ---
Author Name Unknown Organization [facility] Address [address] [address] Phone [phone] Care Team Providers Care Grass Cutter Name Role Phone Alysha Gardiner DO Primary Care Provider [phone] Reason for Referral * Evaluate & Treat - Unlimited Visits (Within 3 days (urgent)) - Pending Review Specialty Diagnoses / Procedures Referred By Hermes branch Referred To Contact Dermatology Diagnoses Melanoma in situ of upper extremity, right (HCC) Krys Flores PA-C [address] [place] [address] [place] [address] [phone] Referral ID Status Reason Start Date Expiration Date Visits Requested Visits Authorized [id number] Pending Review Specialty Services Required 01/10/[phone] Question Answer Referral Priority Within 3 days (urgent) Are you referring the patient for Mohs Surgery and have a current positive skin cancer biopsy result? Yes Type of Procedure OPS - MOHS Surgeon Comments Early evolving MIS on R forearm Reason for Visit * Reason Onset Date Comments Test Results Biopsy 01/10/2023 Appointment 01/10/2023 Encounter Details Date Type Department Care Team Description 01/10/2023 [place] [address] Krys Flores PA-C [address] [place] [address] [address] [address] [phone] Test Results Biopsy; Appointment Allergies Active Allergy Reactions Severity Noted Date Comments Adhesive Tape Rash 11/27/2012 Bandaid brand documented as of this encounter (statuses as of 01/13/2023) Medications Medication Sig Dispensed Refills Start Date End Date Status Multiple Vitamins-Minerals (MULTIVITAMIN ADULTS) TABS Take by mouth. 0 Active Losartan Potassium 100 MG Oral Tablet (Cozaar)Indications:H TN, goal below 130/80 Take 1 Tablet by mouth in the morning. 90 Tablet 3 09/04/2022 Active hydroCHLOROthiazide 25 MG Oral Tablet (Hydrodiuril) Take 1 Tablet by mouth in the morning. 90 Tablet 1 09/18/2022 Active Estradiol 0.1 MG/GM Vaginal Cream (Estrace) DAILY 0 11/05/2021 Active Zoster Vac Recomb Adjuvanted 50 MCG/0.5ML Intramuscular Suspension Reconstituted (Shingrix)Indications :Need for shingles vaccine Inject 0.5 mL into a large muscle now and repeat dose in 60 to 180 days 1 Each 1 11/14/2022 Active Metoprolol Succinate ER 25 MG Oral Tablet Extended Release 24 Hour (toPROL XL)Indications:HTN, goal below 130/80 Take 1 Tablet by mouth in the morning. 90 Tablet 2 12/04/2022 Active Levothyroxine Sodium 100 MCG Oral Tablet (Levoxyl)Indications: Hypothyroidism due to acquired atrophy of thyroid Take 1 Tablet by mouth in the morning. (at least 30 min prior to breakfast or other meds). 30 Tablet 11 01/08/2023 Active Atorvastatin Calcium 10 MG Oral Tablet (Lipitor) Take 1 Tablet by mouth in the morning. 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/17) PAT (paroxysmal atrial tachycardia) 02/2020 HTN, goal below 130/80 03/06/2018 Hypothyroidism due to acquired atrophy o f thyroid 03/05/2018 Herpes zoster without complications 01/25 Hx of actinic keratosis 01/05/2015 documented as of this encounter (statuses as of 01/13/2023) Resolved Problems Problem Noted Date Resolved Date Accelerated hypertension 03/03/2017 018 Other, multiple, and unspeci fied sites, insect bite, nonvenomous, without mention of infection(919.4) 06/17/201111/27 documented as of this encounter (statuses as of 01/13/2023) Immunizations Name Administration Dates Next Due COVID-19 mRNA, LNP-s, No Pre serve, 2-Dose Series (Source4Style) 10/31/2020,10/10/2020 HEP A - Hepatitis A (Adult > 18 yrs) 09/08/2019 Seasonal Influenza, Quadrivalent, ID 04/28/2019 Seasonal Influenza, Quadriva lent, No Preserve, 6 Mons & Above, IM 06/01/2022,04/26/2021,04/21/2020 Seasonal Influenza, Split, I IV3, With Preserve, Inj 05/01/2011,04/20/2010 TDAP (age 10 and older)(Boostrix) 03/03/2017 TDAP (age 11 and older)(Adacel) 04/01/2005 Yellow Fever Vaccine - Alternative 09/08/2019 documented as of this encounter Social History Tobacco Use Types Packs/Day Years Used Date Smoking Tobacco: Never Passive Smoke Exposure: Never Smokeless Tobacco: Never Alcohol Use Standard Drinks/Week Comments Yes 0 (1 standard drink = 0.6 oz pur e alcohol) weekends Food Insecurity Answer Date Recorded Within the past 12 months, y ou worried that your food would run out before you got money to buy more. Never true 04/15/2019 Within the past 12 months, t he food you bought just didn't last and you didn't have money to get more. Never true 04/15/2019 Sex Assigned at Date Recorded Female 04/26/2021 8:39 AM E DT Job Start Date Occupation Industry Not on file Not on file Not on file documented as of this encounter Miscellaneous Notes * Telephone Encounter - Clare Melgar, URBAN - 01/13/2023 10:14 AM EDT Spoke to patient and scheduled for an OPS/excision with DR Astudillo for 02/07 at 2pm * Telephone Encounter - Dania Astudillo MD - 01/13/2023 7:27 AM EDT Excision. * Telephone Encounter - URBAN Rivero - 01/10/2023 3:[address] Astudillo, [place] mohs or OPS/excison for lesion A? * Telephone Encounter - Krys Flores PA-C - 01/10/2023 2:56 PM EDT Spoke to pt regarding bx results. Early evolving melanoma in situ on R forearm, plan for Mohs OPS excision in [facility]. No further tx needed to R toe. Pt is aware she will be called to schedule the appt. Krys Flores [facility] [place] A. Skin, R distal forearm, shave: Atypical epidermal melanocytic proliferation (see comment) Comment: The lesion extends to the peripheral inked margin of the specimen. An early evolving malignant melanoma in situ is favored. Hematoxylin and eosin stained sections reveal a proliferation of melanocytes as single cells and nests at the dermal-epidermal junction. An immunostain to MART-1 (controls appropriate) highlights the melanocytic proliferation and shows junctional confluent growth ofmelanocytes as well as upward epidermal scatter of melanocytes. An immunostain to PRAME (controls appropriate) labels scattered melanocytes in the lesion. Communication alerting the clinician of the diagnosis was sent on 01/10/23. B. Skin, R medial 1st toe, shave: Benign intradermal melanocytic nevus (see comment) Comment: The lesion extends to the deep inked margin of the specimen. * Telephone Encounter - URBAN Morillo - 01/10/2023 2:51 PM EDT Patient returning your call for biopsy results. She is available to take your call. * Telephone Encounter - Krys Flores PA-C - 01/10/2023 2:22 PM EDT Left non specific message for pt to call back to discuss bx results. Early evolving melanoma in situ on R forearm, plan for Mohs OPS excision in [facility]. No further tx needed to R toe. Krys Flores [facility] [place] A. Skin, R distal forearm, shave: Atypical epidermal melanocytic proliferation (see comment) Comment: The lesion extends to the peripheral inked margin of the specimen. An early evolving malignant melanoma in situ is favored. Hematoxylin and eosin stained sections reveal a proliferation of melanocytes as single cells and nests at the dermal-epidermal junction. An immunostain to MART-1 (controls appropriate) highlights the melanocytic proliferation and shows junctional confluent growth ofmelanocytes as well as upward epidermal scatter of melanocytes. An immunostain to PRAME (controls appropriate) labels scattered melanocytes in the lesion. Communication alerting the clinician of the diagnosis was sent on 01/10/23. B. Skin, R medial 1st toe, shave: Benign intradermal melanocytic nevus (see comment) Comment: The lesion extends to the deep inked margin of the specimen. documented in this encounter Plan of Treatment Upcoming Encounters Date Type Specialty Care Team Description 02/07/2023 Office Visit Dermatology Dania Astudillo MD [address] [place] [address] [place] [id number] 05/16/2023 Office Visit Family Medicine Alysha Gardiner DO [address] [place] [phone] 02/10/2024 Office Visit Dermatology Krys Flores PA-C [address] [place] [address] [place] [phone] Scheduled Referrals Name Type Priority Associated Diagnoses Orde r Schedule MOHS SURGERY REFERRAL OP Referral Within 3 days (urgent) Melanoma in situ of upper extremity, right (HCC) Ordered: 01/10/2023 Health Maintenance Due Date Last Done Comments HIV Screening 1975 Fecal Occult Blood Test 2005 Sigmoidoscopy 2005 Colonoscopy 09/07/2020 09/07/2010 COVID-19 Vaccine (3 - Pfizer series) 12/26/2020 10/31/2020, 10/10/2020 Albumin/Creatinine Ratio 03/05/2021 03/05/2018 PAP SMEAR-EVERY 3 YRS,AGES 18-100 03/09/2021 03/09/2018, 02/12/2017, 02/12/2016, Additional history exists Depression Screening, Annual for Pts 12 and Over 04/26/2022 04/26/2021 Zoster Vaccines (2 of 2) 03/05/2023 01/08/2023 Cologuard 06/03/2023 06/03/2020, 08/2019, 05/29/2020 Colorectal Cancer Screening 06/03/2023 GFR 11/15/2023 11/14/2022, 09/26, 09/21/2020, Additional history exists TSH 11/15/2023 11/14/2022, 09/26, 09/21/2020, Additional history exists Mammogram 12/05/2023 12/04/2022, 05/28, 05/22/2022, Additional history exists Diabetes Screening 11/14/2025 11/14/2022, 0 10/18/2021, 09/21/2020, Additional history exists DTaP,Tdap,and Td Vaccines (3 - Td or Tdap) 03/03/2027 03/03/2017, 04/01/2005 Lipid Panel 11/15/2027 11/14/2022, 09/26, 09/21/2020, Additional history exists Influenza Vaccine (FLU shot) Completed 11/2021, 04/26/2021, 04/21/2020, Additional history exists GARDASIL-HPV IMMUNIZATION SERIES Aged Out No longer eligible based on patient's age to complete this topic Hepatitis B Aged Out No longer eligi ble based on patient's age to complete this topic MENINGOCOCCAL (MENACTRA/MENVEO) Aged Out No longer eligible based on patient's age to complete this topic Pneumococcal Vaccine: Pediatrics (0 to 5 Years) and At-Risk Patients (6 to 64 Years) Aged Out No longer eligible based on patient's age to complete this topic documented as of this encounter Medical Devices Not on filedocumented as of this encounter Visit Diagnoses Diagnosis Melanoma in situ of upper extremity, right (HCC)- Primary documented in this encounter Care Teams Grass Cutter Relationship Specialty Start Date End Date Alysha Gardiner, [address] [place] [address] PCP - General Family Medicine 11/22/19 documented as of this encounter
--- OUTSIDE RECORDS SUMMARY | 2023-06-06 11:20 | External Medical Summary | Summary of Care ---
Author Name Unknown Organization [facility] Address [address] [address] Phone [phone] Care Team Providers Care Ups Driver Name Role Phone Zackery Rico DO Primary Care Provider [phone] Reason for Visit * Reason Onset Date Comments Medication Refill 03/11/2023 Encounter Details Date Type Department Care Team Description 03/11/2023 Refill [facility] [address] [place] [address] Zackery Rico DO [address] [place] [address] Hypothyroidism due to acquired atrophy of thyroid Allergies Active Allergy Reactions Severity Noted Date Comments Adhesive Tape Rash 11/27/2012 Bandaid brand documented as of this encounter (statuses as of 03/13/2023) Medications Medication Sig Dispensed Refills Start Date End Date Status Multiple Vitamins-Minerals (MULTIVITAMIN ADULTS) TABS Take by mouth. 0 Active Losartan Potassium 100 MG Oral Tablet (Cozaar)Indications :HTN, goal below 130/80 Take 1 Tablet by mouth in the morning. 90 Tablet 3 09/04/2022 Active hydroCHLOROthiazide 25 MG Oral Tablet (Hydrodiuril) Take 1 Tablet by mouth in the morning. 90 Tablet 1 09/18/2022 Active Estradiol 0.1 MG/GM Vaginal Cream (Estrace) DAILY 0 11/05/2021 Active Zoster Vac Recomb Adjuvanted 50 MCG/0.5ML Intramuscular Suspension Reconstituted (Shingrix)Indicatio ns:Need for shingles vaccine Inject 0.5 mL into a large muscle now and repeat dose in 60 to 180 days 1 Each 1 11/14/2022 Active Metoprolol Succinate ER 25 MG Oral Tablet Extended Release 24 Hour (toPROL XL)Indications:HTN, goal below 130/80 Take 1 Tablet by mouth in the morning. 90 Tablet 2 12/04/2022 Active Atorvastatin Calcium 10 MG Oral Tablet (Lipitor) Take 1 Tablet by mouth in the morning. 90 Tablet 3 02/05/2023 Active Levothyroxine Sodium 100 MCG Oral Tablet (Levoxyl)Indication s:Hypothyroidism due to acquired atrophy of thyroid Take 1 Tablet by mouth in the morning. (at least 30 min prior to breakfast or other meds). 30 Tablet 11 03/13/2023 Active Levothyroxine Sodium 100 MCG Oral Tablet (Levoxyl)Indication s:Hypothyroidism due to acquired atrophy of thyroid Take 1 Tablet by mouth in the morning. (at least 30 min prior to breakfast or other meds). 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/17) PAT (paroxysmal atrial tachycardia) 02/2020 HTN, goal below 130/80 03/06/2018 Hypothyroidism due to acquired atrophy o f thyroid 03/05/2018 Herpes zoster without complications 01/25 Hx of actinic keratosis 01/05/2015 documented as of this encounter (statuses as of 03/13/2023) Resolved Problems Problem Noted Date Resolved Date Accelerated hypertension 03/03/2017 018 Other, multiple, and unspeci fied sites, insect bite, nonvenomous, without mention of infection(919.4) 06/17/201111/27 documented as of this encounter (statuses as of 03/13/2023) Immunizations Name Administration Dates Next Due COVID-19 mRNA, LNP-s, No Pre serve, 2-Dose Series ([employer]) 10/31/2020,10/10/2020 HEP A - Hepatitis A (Adult [...] encounter Miscellaneous Notes * Telephone Encounter - Zackery Rico DO - 03/13/2023 9:40 PM EDTSigned Prescriptions: Disp Refills Levothyroxine Sodium 100 MCG Oral Tablet (*30 Tab*11 Sig: Take 1Tablet by mouth in the morning. (at least 30 min prior to breakfast or other meds).Authorizing Provider: ZACKERY RCIO documented in this encounter Plan of Treatment Upcoming Encounters Date Type Specialty Care Team Description 05/16/2023 [facility] Visit [facility] [address] [id number] 06/11/2023 Office Visit Cardiology Makenna Bowden CRNP [address] [place] [address] 02/10/2024 Office Visit Dermatology Krys Flores PA-C [address] [place] [address] [address] [place] [address] Health Maintenance Due Date Last Done Comments HIV Screening 1975 Fecal Occult Blood Test 2005 Sigmoidoscopy 2005 Colonoscopy 09/07/2020 09/07/2010 COVID-19 Vaccine (3 - Pfizer series) 12/26/2020 10/31/2020, 10/10/2020 Albumin/Creatinine Ratio 03/05/2021 03/05/2018 Depression Screening, Annual for Pts 12 and Over 04/26/2022 04/26/2021 Zoster Vaccines (2 of 2) 03/05/2023 01/08/2023 Influenza Vaccine (FLU shot) (#1) 2023 06/01/2022, 04/26/2021, 04/21/2020, Additional history exists Cologuard 06/03/2023 06/03/2020, 08/2019, 05/29/2020 Colorectal Cancer Screening 06/03/2023 GFR 11/15/2023 11/14/2022, 09/26, 09/21/2020, Additional history exists TSH 11/15/2023 11/14/2022, 09/26, 09/21/2020, Additional history exists Mammogram 12/05/2023 12/04/2022, 05/28, 05/22/2022, Additional history exists PAP SMEAR-EVERY 3 YRS,AGES 18-100 11/05/2024 11/05/2021, 03/09/2018, 02/12/2017, Additional history exists Diabetes Screening 11/14/2025 11/14/2022, 0 10/18/2021, 09/21/2020, Additional history exists DTaP,Tdap,and Td Vaccines (3 - Td or Tdap) 03/03/2027 03/03/2017, 04/01/2005 Lipid Panel 11/15/2027 11/14/2022, 09/26, 09/21/2020, Additional history exists GARDASIL-HPV IMMUNIZATION SERIES Aged [...] as of this encounter Visit Diagnoses Diagnosis Hypothyroidism due to acquired atrophy of thyroid documented in this encounter Care Teams Ups Driver Relationship Specialty Start Date End Date Zackery Rico, [address] [place] [address] PCP - General Family Medicine 11/22/19 documented as of this encounter
--- OUTSIDE RECORDS SUMMARY | 2023-06-06 11:20 | External Medical Summary | Summary of Care ---
Author Name Unknown Organization [facility] Address [address] [address] Phone [phone] Care Team Providers Care Shipping Clerk Name Role Phone Alysha Gardiner DO Primary Care Provider Reason for Visit * Reason Comments Excision * Evaluate & Treat - Unlimited Visits (Within 3 days (urgent)) - Pending Review Specialty Diagnoses / Procedures Referred By Contvenkat t Referred To Contact Dermatology Diagnoses Melanoma in situ of upper extremity, right (HCC) Krys Flores PA-C [address] [place] [address] [address] [place] [id number] Referral ID Status Reason Start Date Expiration Date Visits Requested Visits Authorized [id number] Pending Review Specialty Services Required 01/10/[phone] Encounter Details Date Type Department Care Team Description 02/07/2023 Office Visit [facility] [address] [place] [address] Dania Astudillo MD [address] [place] [address] Pigmented skin lesion of suspected malignant nature* Allergies Active Allergy Reactions Severity Noted Date Comments Adhesive Tape Rash 11/27/2012 Bandaid brand documented as of this encounter (statuses as of 02/18/2023) Medications Medication Sig Dispensed Refills Start Date [...] the morning. 90 Tablet 3 02/05/2023 Active Cephalexin 500 MG Oral Capsule Take 1 Capsule by mouth in the morning and 1 Capsule before bedtime. Do all this for 7 days. 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/17) PAT (paroxysmal atrial tachycardia) 02/2020 HTN, goal below 130/80 03/06/2018 Hypothyroidism due to acquired atrophy o f thyroid 03/05/2018 Herpes zoster without complications 01/25 Hx of actinic keratosis 01/05/2015 documented as of this encounter (statuses as of 02/18/2023) Resolved Problems Problem Noted Date Resolved Date Accelerated hypertension 03/03/2017 018 Other, multiple, and unspeci fied sites, insect bite, nonvenomous, without mention of infection(919.4) 06/17/201111/27 documented as of this encounter (statuses as of 02/18/2023) Immunizations Name Administration Dates Next Due COVID-19 mRNA, LNP-s, No Pre serve, 2-Dose Series ([employer]) 10/31/2020,10/10/2020 HEP A - Hepatitis A (Adult [...] on file documented as of this encounter Last Filed Vital Signs Vital Sign Reading Time Taken Comments Blood Pressure - - Pulse - - Temperature 36.6 C (97.8 F) 02/07/2023 2:04 PM ED T Respiratory Rate - - Oxygen Saturation - - Inhaled Oxygen Concentration - - Weight - - Height - - Body Mass Index - - documented in this encounter Progress Notes * Dania Astudillo MD - 02/07/2023 2:00 PM EDT Maliha Jorge is a 62 year old female seen at the request of Krys Flores PA-C for removal of a lesion on the right distal forearm. Pathology as follows: A. Skin, R distal forearm, shave: Atypical [...] of the diagnosis was sent on 01/10/23. Examination Maliha Jorge, 62 year old female, is alert, oriented and appears well and in no distress. The following lesion was noted and addressed: 1) Location: right distal forearm Appearance: 9 mm x 9 mm pink scar Impression: Atypical epidermal melanocytic proliferation, an early evolving malignant melanoma in situ is favored, right distal forearm Recommendation: 1) The lesion was excised (see separate note) Follow-up: as needed Dania Astudillo MD [facility] [place] [address] PROCEDURE NOTE Referred by: Krys Flores PA-C Preoperative diagnosis: Atypical epidermal melanocytic proliferation, an early evolving malignant melanoma in situ is favored Postoperative diagnosis: Pending Location: right distal forearm Surgeon(s): Dania Astudillo MD Anesthesia: Lidocaine 0.5% with epinephrine 1:200,000 by local infiltration Procedure: Excision of soft tissue lesion and closure of defect with an intermediate layered repair Estimated blood loss: Less than 5cc Complications: none Preoperative size: 0.9 cm x 0.9 cm without margins, 1.9 cm x 1.9 cm with margins Postoperative length of closure: 4.9 cm Description of procedure: The patient was escorted to the procedure room. Timeout was called. Patient name, medical record number, date and procedure were verified. Verification of positioning,equipment and availability of supplies was executed. Site(s) identified and marked prior to procedure. Patient and staff present were in agreement. The surgical site was examined and excision was planned to take at least 5 mm of normal-appearing skin in all directions. The skin was then locally anesthetized and prepped in the usual fashion. Excision was performed through the full thickness of skin into the subcutaneous tissue. The specimen was submitted in formalin for histologic examination. Meticulous hemostasis was obtained with the electrosurgical device and the defect was closed primarily with a layered repair using deep sutures of 4-0 vicryl and running subcuticular sutures of 5-0 monocryl. A sterile pressure dressing was placed. Postoperative care: The patient was instructed to cleanse the wound daily, followed by the application of sterile ointment and a nonadherent dressing. I urged the patient to call us if any problems or questions should arise postoperatively. Operation performed with curative intent: Yes Original Breslow thickness of the lesion: Atypical epidermal melanocytic proliferation, an early evolving malignant melanoma in situ is favored Clinical margin width (measured from the edge of the lesion or the prior excision scar): 0.5 cm Depth of excision: full-thickness skin and subcutaneous tissue to mid/deep fat documented in this encounter Nursing Notes * Brandy Perkins LPN - 02/07/2023 2:05 PM EDT Chief Complaint Patient presents with Excision Referral Doctor: MILDRED Flores Hypertension History: Yes, refer to medication information for treatment. Diabetes History: No Thyroid History: Yes, refer to medication information for treatment. Bleeding Tendency: No Artificial Valve or Joint: No Pacemaker: no Defibrillator: no Hepatitis/HIV Exposure: No Smoking: no Consent signed yes documented in this encounter Miscellaneous Notes * Addendum Note - NEVILLE Gerardo - 02/18/2023 7:36 AM EDTAddended by: ALONA DHALIWAL on: 02/18/2023 07:36 AM Modules accepted: Orders * Result Encounter Note - Dania Astudillo MD - 02/14/2023 5:43 PM EDT Spoke with patient regarding pathology results as noted below: A. Skin, right distal forearm, excision: Atypical junctional melanocytic hyperplasia (see comment) Prior procedure site changes, completely excised (see comment) Comment: The surgical site changes do not show melanoma in situ in the surrounding skin. This specimen shows broad areas of junctional melanocytic hyperplasia of single melanocytes with variable cytologic atypia. This melanocytic proliferation is noted in the peripheral margins. Melanocyte markers ( SOX10, [place] 1, MITF) performed on A4, A2, A3, respectively) highlight crowded to contiguous growthwith occasional melanocytes above the basal layer. The degree of melanocytic hyperplasia is more prominent than typically seen, but there is no significant PRAME expression and there is no residual melanoma identified, favoring the melanocytic hyperplasia to represent solar-induced melanocytic proliferation. Because this proliferation shows some atypia, close follow-up of this site is recommended, and if there is recurrent pigment, additional sampling should be performed. This case has also been seen in intradepartmental consultation. Explained the pathology results above and that no further intervention is needed at this time, siteshould be monitored for recurrent pigment. Patient reports that wound is healing well and she has no problems/questions at this time. Dania Astudillo MD 02/14/2023 5:42 PM documented in this encounter Plan of Treatment Upcoming Encounters Date Type Specialty Care Team Description 05/16/2023 Office Visit Family Medicine Alysha Gardiner DO [address] [place] [address] 06/11/2023 Office Visit Cardiology Makenna Bowden CRNP [address] [place] [address] 02/10/2024 Office Visit Dermatology Krys Flores PA-C [address] [place] [address] [place] [address] Health Maintenance Due Date Last Done Comments [...] Not on filedocumented as of this encounter Procedures Procedure Name Priority Date/Time Associated Diagnosis Comments SURGICAL PATHOLOGY Routine 02/07/2023 2: 50 PM EDT Pigmented skin lesion of suspected malignant nature documented in this encounter Results * SURGICAL PATHOLOGY (02/07/2023 2:50 PM EDT) Final Diagnosis A. Skin, right distal forearm, excision: Atypical junctional melanocytic hyperplasia (see comment) Prior procedure site changes, completely excised (see comment) Comment: The surgical site changes do not show melanoma in situ in the surrounding skin. This specimen shows broad areas of junctional melanocytic hyperplasia of single melanocytes with variable cytologic atypia. This melanocytic proliferation is noted in the peripheral margins. Melanocyte markers ( SOX10, Houston 1, MITF) performed on A4, A2, A3, respectively) highlight crowded to contiguous growth with occasional melanocytes above the basal layer. The degree of melanocytic hyperplasia is more prominent than typically seen, but there is no significant PRAME expression and there is no residual melanoma identified, favoring the melanocytic hyperplasia to represent solar-induced melanocytic proliferation. Because this proliferation shows some atypia, close follow-up of this site is recommended, and if there is recurrent pigment, additional sampling should be performed. This case has also been seen in intradepartmental consultation. 02/14/2023 5:15 PM EDT [facility] Clinical History See Order Comments 02/14/2023 5:15 PM EDT [facility] Order Comments A. Right distal forearm: excision of "atypical epidermal melanocytic proliferation", suture at superior pole 02/14/2023 5:15 PM EDT [facility] Gross Description A. Skin. excision Received in formalin with a container labeled with "Maliha Jorge", "[id number]", "1960" and " right distal forearm". The specimen consists an excision bolanos skin and underlying soft tissue measuring 3.7 x 2.1 cm, which is excised to a depth of 0.7 cm. There is a suture present at the superior pole. In the center of the epidermal surface there is a fibrous scarred previous biopsy site measuring 1.2 x 1.0 cm which comes within 0.5 cm of the closest peripheral edge. There is no residual gross pigmented lesion identified. The specimen is dissected and the underlying adipose tissue is grossly unremarkable. The specimen is entirely submitted as per the attached diagram in cassettes A 1-A10. Gross By: LY 02/14/2023 5:15 PM EDT [facility] Sign Out Location Pathologist sign out performed at [facility] ([facility] [facility]– [place] [address]. 02/14/2023 5:15 PM EDT [facility] Photographic images and diagrams represent zhang findings in this case; they are not intended to replace a complete review of the final diagnostic report. The following statement applies to Flow Cytometry, Histology, In situ Hybridization Assays and Molecular Genetics. This test was developed and performed at [facility] and its performance characteristics determined by [facility]. It has not been cleared or approved by the U.S. Food and Drug Administration. The FDA has determined that such clearance or approval is not necessary. This test is used for clinical purposes. It should not be regarded as investigational or for research. Special stains, including histochemical stains, and studies using immunologic and NATALIA methodology (where applicable) are performed with appropriate positive and negative control reactions. 02/14/2023 5:15 PM EDT [facility] Tissue Skin structure / Unknown 02/07/2023 2:50 PM EDT 02/07/2023 2:50 PM EDT Comment:A. Right distal fore arm: excision of "atypical epidermal melanocytic proliferation", suture at superior pole Dania Astudillo MD LAB [facility] [address] [address] documented in this encounter Visit Diagnoses Diagnosis Pigmented skin lesion of suspected malignant nature- Primary documented in this encounter Care Teams Shipping Clerk Relationship Specialty Start Date End Date Kopinski, Alysha L, DO [address] [place] [address] PCP - General Family Medicine 11/22/19 documented as of this encounter
--- OUTSIDE RECORDS SUMMARY | 2023-06-06 11:20 | External Medical Summary | Summary of Care ---
Author Name Unknown Organization [facility] Address [address] [address] Phone [phone] Care Team Providers Care Fishing Lure Assembler Name Role Phone Zackery Rico DO Primary Care Provider [phone] Encounter Details Date Type Department Care Team Description 02/03/[address] [facility] [address] [place] [facility] [place] [address] Zackery Rico DO [address] [place] [address] Allergies Active Allergy Reactions Severity Noted Date Comments Adhesive Tape Rash 11/27/2012 Bandaid brand documented as of this encounter (statuses as of 02/05/2023) Medications Medication Sig Dispensed Refills Start Date [...] the morning. 90 Tablet 3 02/05/2023 Active Atorvastatin Calcium 10 MG Oral Tablet (Lipitor) Take 1 Tablet by mouth in the morning. 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/17) PAT (paroxysmal atrial tachycardia) 02/2020 HTN, goal below 130/80 03/06/2018 Hypothyroidism due to acquired atrophy o f thyroid 03/05/2018 Herpes zoster without complications 01/25 Hx of actinic keratosis 01/05/2015 documented as of this encounter (statuses as of 02/05/2023) Resolved Problems Problem Noted Date Resolved Date Accelerated hypertension 03/03/2017 018 Other, multiple, and unspeci fied sites, insect bite, nonvenomous, without mention of infection(919.4) 06/17/201111/27 documented as of this encounter (statuses as of 02/05/2023) Immunizations Name Administration Dates Next Due COVID-19 mRNA, LNP-s, No Pre serve, 2-Dose Series ([employer]) 10/31/2020,10/10/2020 HEP A - Hepatitis A (Adult [...] at Date Recorded Female 04/26/2021 8:39 AM EDT Job Start Date Occupation Industry Not on file Not on file Not on file documented as of this encounter Miscellaneous Notes * Telephone Encounter - Zackery Rico DO - 02/05/2023 3:08 PM EDTSigned Prescriptions: Disp Refills Atorvastatin Calcium 10 MG Oral Tablet (Li*90 Tab*3 Sig: Take 1 Tablet by mouth in the morning.Authorizing Provider: ZACKERY RICO documented in this encounter Plan of Treatment Upcoming Encounters Date Type Specialty Care Team Description 02/07/2023 Office Visit Dermatology Dania Astudillo MD [address] [place] [address], [place] [address] 05/16/2023 Office Visit Family Medicine Zackery Rico DO [address] [facility] [address] 02/10/2024 Office Visit Dermatology Krys Flores PA-C [address] [place] [address] [place] [address] Health Maintenance Due Date Last Done Comments [...] Not on filedocumented as of this encounter Care Teams Fishing Lure Assembler Relationship Specialty Start Date End Date Zackery Rico, [address] [place] [address] PCP - General Family Medicine 11/22/19 documented as of this encounter
--- OUTSIDE RECORDS SUMMARY | 2023-06-06 11:20 | External Medical Summary | Summary of Care ---
Author Name Unknown Organization [facility] Address [address] [address] Phone [phone] Care Team Providers Care Fermenter Name Role Phone Alysha Gardiner DO Primary Care Provider Encounter Details Date Type Department Care Team Description [facility] [address] [place] [facility] [place] [address] Alysha Gardiner DO [address] [place] [address] Allergies Active Allergy Reactions Severity Noted Date Comments Adhesive Tape Rash 11/27/2012 Bandaid brand documented as of this encounter (statuses as of 02/12/2023) Medications Medication Sig Dispensed Refills Start Date [...] other meds). 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/17) PAT (paroxysmal atrial tachycardia) 02/2020 HTN, goal below 130/80 03/06/2018 Hypothyroidism due to acquired atrophy o f thyroid 03/05/2018 Herpes zoster without complications 01/25 Hx of actinic keratosis 01/05/2015 documented as of this encounter (statuses as of 02/12/2023) Resolved Problems Problem Noted Date Resolved Date Accelerated hypertension 03/03/2017 018 Other, multiple, and unspeci fied sites, insect bite, nonvenomous, without mention of infection(919.4) 06/17/201111/27 documented as of this encounter (statuses as of 02/12/2023) Immunizations Name Administration Dates Next Due COVID-19 mRNA, LNP-s, No Pre serve, 2-Dose Series ([employer]) 10/31/2020,10/10/2020 HEP A - Hepatitis A (Adult [...] on file documented as of this encounter Plan of Treatment Upcoming Encounters Date Type Specialty Care Team Description 05/16/2023 Office Visit Family [facility] Alysha Gardiner, [facility] [address] [facility] [address] 06/11/2023 Office Visit Cardiology Makenna Bowden CRNP [address] [place] [address] 02/10/2024 Office Visit Dermatology Krys Flores PA-C [address] [place] [address] [place] [address] Health Maintenance Due Date Last Done Comments [...] filedocumented as of this encounter Care Teams Fermenter Relationship Specialty Start Date End Date Alysha Gardiner, [address] [place] [address] PCP - General Family Medicine 11/22/19 documented as of this encounter
--- OUTSIDE RECORDS SUMMARY | 2023-06-06 11:20 | External Medical Summary | Summary of Care ---
Author Name Unknown Organization [facility] Address [address] [place] [address] Phone [phone] Care Team Providers Care Language Interpreter Name Role Phone Alysha Gardiner DO Primary Care Provider [phone] Reason for Visit * Reason Comments Follow Up Annual visit Encounter Details Date Type Department Care Team (Late st Contact Info) Description 05/26/2023 11:50 AM EDT Office Visit [facility] [address] [place] [address] Alysha Gardiner DO [address], [place] [id number] HTN, goal below 130/80*; PAT (paroxysmal atrial tachycardia); Hypothyroidism due to acquired atrophy of thyroid; Dyslipidemia, goal LDL below 100 Allergies Active Allergy Reactions Criticality Noted Date Comments Adhesive Tape Rash 11/27/2012 Bandaid brand documented as of this encounter (statuses as of 05/29/2023) Medications Medication Sig Dispensed Refills Start Date End Date Status Multiple Vitamins-Minerals (MULTIVITAMIN ADULTS) TABS Take by mouth. 0 Active Losartan Potassium 100 MG Oral Tablet (Cozaar)Indications: HTN, goal below 130/80 Take 1 Tablet by mouth in the morning. 90 Tablet 3 09/04/2022 Active Estradiol 0.1 MG/GM Vaginal Cream (Estrace) DAILY 0 11/05/2021 Active Zoster Vac Recomb Adjuvanted 50 MCG/0.5ML Intramuscular Suspension Reconstituted (Shingrix)Indication s:Need for shingles vaccine Inject 0.5 mL into [...] the morning. 90 Tablet 3 02/05/2023 Active hydroCHLOROthiazide 25 MG Oral Tablet (Hydrodiuril) TAKE 1 TABLET BY MOUTH EVERY DAY IN THE MORNING 90 Tablet 1 05/08/2023 Active Levothyroxine Sodium 100 MCG Oral Tablet (Levoxyl)Indications :Hypothyroidism due to acquired atrophy of thyroid Take 1 Tablet by mouth in the morning. (at least 30 min prior to breakfast or other meds). 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/17) PAT (paroxysmal atrial tachycardia) 10/03/2019 HTN, goal below 130/80 03/06/2018 Hypothyroidism due to acquired atrophy of thyroi d 03/05/2018 Herpes zoster without complications 02/10/2017 Hx of actinic keratosis 01/05/2015 documented as of this encounter (statuses as of 05/29/2023) Resolved Problems Problem Noted Date Diagnosed Date Resolved Date Accelerated hypertension 03/03/201703/2018 Other, multiple, and unspeci fied sites, insect bite, nonvenomous, without mention of infection(919.4) 06/17/2011 11/27/2012 documented as of this encounter (statuses as of 05/29/2023) Immunizations Name Administration Dates Next Due COVID-19 mRNA, LNP-s, No Pre serve, 2-Dose Series ([employer]) 10/31/2020,10/10/2020 HEP A - Hepatitis A (Adult > 18 yrs) 09/08/2019 SEASONAL INFLUENZA, PF, 6 M & Above, IM , (FLULAVAL or FLUZONE) 05/26/2023,06/01/2022,04/26/2021,2019 Seasonal Influenza, Quadrivalent, ID 04/28/2019 Seasonal Influenza, Split, I IV3, With Preserve, Inj 05/01/2011,04/20/2010 TDAP (age 10 and older)(Boostrix) 03/03/2017 TDAP (age 11 and older)(Adacel) 04/01/2005 Yellow Fever Vaccine - Alternative 09/08/2019 documented as of this encounter Social History Tobacco Use Types Packs/Day Years Used Date Smoking Tobacco: Never Passive Smoke Exposure: Never Smokeless Tobacco: Never Tobacco Cessation:Counseling Given: Not Answered Alcohol Use Standard Drinks/Week Comments Yes 0 (1 standard drink = 0.6 oz pur e alcohol) weekends PHQ-2 Answer Date Recorded PHQ Adult Total Score 7 04/26/2021 Hunger Vital Sign Answer Date Recorded Worried About Running Out of Food in the Last Ye ar Never true 04/15/2019 Ran Out of Food in the Last Year Never true 04/15/2019 Sex and Gender Information Value Date Recorded Sex Assigned at Female 04/26/2021 8:39 AM EDT Gender Identity Female 04/26/2021 8:39 AM EDT Sexual Orientation Straight 04/26/2021 8: 28 AM EDT Job Start Date Occupation Industry Not on file Not on file Not on file documented as of this encounter Last Filed Vital Signs Vital Sign Reading Time Taken Comments Blood Pressure 102/68 05/26/2023 11:59 AM EDT Pulse 72 05/26/2023 11:59 AM EDT Temperature 36.3 C (97.3 F) 05/26/2023 11:59 AM E DT Respiratory Rate 16 05/26/2023 11:59 AM EDT Oxygen Saturation 96% 05/26/2023 11:59 AM EDT Inhaled Oxygen Concentration - - Weight 79.4 kg (175 lb) 05/26/2023 11:59 AM EDT Height 160 cm (5' 3") 05/26/2023 11:59 AM EDT Body Mass Index 31 05/26/2023 11:59 AM EDT documented in this encounter Progress Notes * Alysha Gardiner, DO - 05/26/2023 12:14 PM EDT Subjective: Maliha Jorge is a 62 year old female. Chief Complaint Patient presents with Follow Up Annual visit HPI: 62 yr old female here today for a check up. She has HTN, PAT, hypothyroidism, and on meds as listed. Fall in March and hit her [place] and still sore, and was very tender for a while. Otherwise no issues. Mom still living in [place] and vacationed with her and had a good time. PHM: Patient Active Problem List Diagnosis Code Hx of actinic keratosis Z87.2 Herpes zoster without complications B02.9 Hypothyroidism due to acquired atrophy of thyroid E03.4 HTN, goal below 130/80 I10 PAT (paroxysmal atrial tachycardia) I47.19 H/O melanoma in situ Z86.006 Current Outpatient Medications Medication Sig Dispense Refill Multiple Vitamins-Minerals (MULTIVITAMIN ADULTS) TABS Take by mouth. Losartan Potassium 100 MG Oral Tablet (Cozaar) Take 1 Tablet by mouth in the morning. 90 Tablet 3 Zoster Vac Recomb Adjuvanted 50 MCG/0.5ML Intramuscular Suspension Reconstituted (Shingrix) Inject 0.5 mL into a large muscle now and repeat dose in 60 to 180 days 1 Each 1 Metoprolol Succinate ER 25 MG Oral Tablet Extended Release 24 Hour (toPROL XL) Take 1 Tablet by mouth in the morning. 90 Tablet 2 Atorvastatin Calcium 10 MG Oral Tablet (Lipitor) Take 1 Tablet by mouth in the morning. 90 Tablet 3 hydroCHLOROthiazide 25 MG Oral Tablet (Hydrodiuril) TAKE 1 TABLET BY MOUTH EVERY DAY IN THE [id number] Tablet 1 Levothyroxine Sodium 100 MCG Oral Tablet (Levoxyl) Take 1 Tablet by mouth in the morning. (at least30 min prior to breakfast or other meds). 30 Tablet 2 Estradiol 0.1 MG/GM Vaginal Cream (Estrace) DAILY (Patient not taking: Reported on 01/07/2023) No current facility-administered medications for this visit. Review of patient's allergies indicates: Allergen Reactions Adhesive Tape Rash Bandaid brand Objective: BP 102/68 (BP Site: Right Arm, BP Position: Sitting, BP Cuff Size: Regular) | Pulse 72 | Temp 36.3 C (97.3 F) (Temporal Artery) | Resp 16 | Ht 1.6 m (5' 3") | Wt 79.4 kg (175 lb) | SpO2 96% | BMI31.00 kg/m | BSA 1.88 m Physical Exam: General: alert, healthy, and no distress Heart: regular rate & rhythm, no murmur, and no gallops Lungs: chest symmetric with normal AP diameter, no chest deformities noted, no chest wall tenderness, lungs clear to auscultation Abdomen: abdomen soft, non-tender, normal bowel sounds, and no masses or organomegaly Extremities: no edema ASSESSMENT/PLAN: HTN, goal below 130/80 (Primary) - BASIC METABOLIC PANEL; Future; Expected date: 05/27/2023 Actually her BP is low. Will have her stop hctz for now, and has a cardiology appt coming up to keep this. PAT (paroxysmal atrial tachycardia) Stable. Cotn metoprolol. Hypothyroidism due to acquired atrophy of thyroid - TSH WITH FREE T4 IF INDICATED; Future; Expected date: 05/27/2023 Dyslipidemia, goal LDL below 100 - LIPID PANEL WITH DIRECT LDL IF TG IS HIGH; Future; Expected date: 05/27/2023 - HEPATIC FUNCTION PANEL; Future; Expected date: 05/27/2023 Other orders - INFLUENZA VACC, QUAD, PF, 6 MONTHS & UP, 0.5 ML, IM Follow-up: Return in about 6 months (around 11/25/2023). | Check-out note: BP check in 2 weeks and fasting labs. Alysha Gardiner DO documented in this encounter Nursing Notes * Melissa Agarwal CCMA - 05/26/2023 11:59 AM EDT Maliha Jorge is a 62 year old female who presents today for Chief Complaint Patient presents with Follow Up Annual visit documented in this encounter Plan of Treatment Upcoming Encounters Date Type Department Care Team (Late st Contact Info) Description 06/11/2023 8:00 AM EST Office Visit Cardiology, [address] [place] [address] Makenna Bowden CRNP [address] [place], [place] [address] 06/11/2023 9:30 AM EST Nurse Only [facility] [address] [facility] [place], [place] [address] [facility], Nurse Irving [place] [address] [facility] [place], [place] [address] 11/27/2023 8:10 AM EDT Office Visit [facility] [address] [place] [id number] Alysha Gardiner DO [address] [place] [address] 02/10/2024 3:20 PM EDT Office Visit Dermatology [facility] [address] [place] [address] Krys Flores PA-C [address] [place] [address] [place] [id number] Scheduled Orders Name Type Priority Associated Diagnoses Orde r Schedule TSH WITH FREE T4 IF INDICATED Lab Routine Hypothyroidism due to acquired atrophy of thyroid Expected: 05/27/2023, Expires: 12/05/2023 LIPID PANEL WITH DIRECT LDL IF TG IS HIGH Lab Routine Dyslipidemia, goal LDL below 100 Expected: 05/27/2023, Expires: 12/05/2023 HEPATIC FUNCTION PANEL Lab Routine Dyslipidemia, goal LDL below 100 Expected: 05/27/2023, Expires: 12/05/2023 BASIC METABOLIC PANEL Lab Routine HTN, goal below 130/80 Expected: 05/27/2023, Expires: 12/05/2023 Health Maintenance Due Date Last Done Comments HIV Screening 1975 Fecal Occult Blood Test 2005 Sigmoidoscopy 2005 Colonoscopy 09/07/2020 09/07/2010 Albumin/Creatinine Ratio 03/05/2021 03/05/2018 Depression Screening 04/26/2022 04/26/2021 Zoster Vaccines (2 of 2) 03/05/2023 01/08/2023 COVID-19 Vaccine (3 - 2022-24 season) 2023 10/31/2020, 10/10/2020 Cologuard 06/03/2023 06/03/2020, 08/2019, 05/29/2020 Colorectal Cancer [...] history exists Influenza Vaccine (FLU shot) Completed , 06/01/2022, 04/26/2021, Additional history exists GARDASIL-HPV IMMUNIZATION SERIES Aged [...] as of this encounter Visit Diagnoses Diagnosis HTN, goal below 130/80- Primary Unspecified essential hypertension PAT (paroxysmal atrial tachycardia) Paroxysmal supraventricular tachycardia Hypothyroidism due to acquired atrophy of thyroid Dyslipidemia, goal LDL below 100 Other and unspecified hyperlipidemia documented in this encounter Care Teams Language Interpreter Relationship Specialty Start Date End Date Alysha Gardiner DO [address] [facility] [place] [address] PCP - General Family Medicine 11/22/19 documented as of this encounter
--- OUTSIDE RECORDS SUMMARY | 2023-06-06 11:20 | External Medical Summary | Summary of Care ---
Author Name Unknown Organization [facility] Address [address] [place] [address] Phone [phone] Care Team Providers Care Manager Switch Name Role Phone Alysha Gardiner DO Primary Care Provider Encounter Details Date Type Department Care Team Description 01/15/2023 Orders Only [facility] [address] [place] [address] Alysha Gardiner DO [address] [place] [address] Allergies Active Allergy Reactions Severity Noted Date Comments Adhesive Tape Rash 11/27/2012 Bandaid brand documented as of this encounter (statuses as of 01/15/2023) Medications Medication Sig Dispensed Refills Start Date [...] as of this encounter (statuses as of 01/15/2023) Active Problems Problem Noted Date H/O melanoma in situ 01/10/2023 Overview: 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/17) PAT (paroxysmal atrial tachycardia) 02/2020 HTN, goal below 130/80 03/06/2018 Hypothyroidism due to acquired atrophy o f thyroid 03/05/2018 Herpes zoster without complications 01/25 Hx of actinic keratosis 01/05/2015 documented as of this encounter (statuses as of 01/15/2023) Resolved Problems Problem Noted Date Resolved Date Accelerated hypertension 03/03/2017 018 Other, multiple, and unspeci fied sites, insect bite, nonvenomous, without mention of infection(919.4) 06/17/201111/27 documented as of this encounter (statuses as of 01/15/2023) Immunizations Name Administration Dates Next Due COVID-19 mRNA, LNP-s, No Pre serve, 2-Dose Series ([employer]) 10/31/2020,10/10/2020 HEP A - Hepatitis A (Adult [...] 02/07/2023 Office Visit Dermatology Dania Astudillo MD [address] [place] [address] 05/16/2023 Office Visit Family Medicine Alysha Gardiner DO [address] [place] [address] 02/10/2024 Office Visit Dermatology Krys Flores PA-C [address] [place] [address] [place] [address] Health Maintenance Due Date Last Done Comments HIV Screening 1975 Fecal Occult Blood Test 2005 Sigmoidoscopy 2005 Colonoscopy 09/07/2020 09/07/2010 COVID-19 Vaccine (3 - Pfizer series) 12/26/2020 10/31/2020, 10/10/2020 Albumin/Creatinine Ratio 03/05/2021 03/05/2018 PAP SMEAR-EVERY 3 YRS,AGES 18-100 03/09/2021 11/05/2021, 03/09/2018, 02/12/2017, Additional history exists Depression Screening, Annual for Pts 12 and Over 04/26/2022 04/26/2021 Zoster Vaccines (2 of 2) 03/05/2023 01/08/2023 Cologuard 06/03/2023 06/03/2020, 1108/2019, 05/29/2020 Colorectal Cancer Screening 06/03/2023 GFR 11/15/2023 [...] Procedure Name Priority Date/Time Associated Diagnosis Comments PAP SMEAR, OUTSIDE PROCEDURE Routine 11/05/2021 documented in this encounter Results * PAP SMEAR, OUTSIDE PROCEDURE (11/05/2021) 11/05/2021 Malinda Moore DO LABORATORY OUTSIDE LAB (SEE SCANNED REPORT) documented in this encounter Care Teams Manager Switch Relationship Specialty Start Date End Date Alysha Gardiner, [address] [place] [phone] PCP - General Family Medicine 11/22/19 documented as of this encounter
--- OUTSIDE RECORDS SUMMARY | 2023-06-06 11:20 | External Medical Summary | Summary of Care ---
Author Name Unknown Organization [facility] Address [address] [place] [address] Phone [phone] Care Team Providers Care Lift Team Technician Name Role Phone Alysha Gardiner DO Primary Care Provider Reason for Visit * Reason Comments Excision * Evaluate & Treat - Unlimited Visits (Within 3 days (urgent)) - Pending Review Specialty Diagnoses / Procedures Referred By Contvenkat t Referred To Contact Dermatology Diagnoses Melanoma in situ of upper extremity, right (HCC) Krys Flores PA-C [address] [place] [address] [place] [id number] Referral ID Status Reason Start Date Expiration Date Visits Requested Visits Authorized [id number] Pending Review Specialty Services Required 01/10/[phone] Encounter Details Date Type Department Care Team Description 02/07/2023 Office Visit [facility] [address] [place] [address] Dania Astudillo MD [address] [place] [address] Pigmented skin lesion of suspected malignant nature* Allergies Active Allergy Reactions Severity Noted Date Comments Adhesive Tape Rash 11/27/2012 Bandaid brand documented as of this encounter (statuses as of 02/07/2023) Medications Medication Sig Dispensed Refills Start Date [...] as of this encounter (statuses as of 02/07/2023) Active Problems Problem Noted Date H/O melanoma in situ 01/10/2023 Overview: 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/17) PAT (paroxysmal atrial tachycardia) 02/2020 HTN, goal below 130/80 03/06/2018 Hypothyroidism due to acquired atrophy o f thyroid 03/05/2018 Herpes zoster without complications 01/25 Hx of actinic keratosis 01/05/2015 documented as of this encounter (statuses as of 02/07/2023) Resolved Problems Problem Noted Date Resolved Date Accelerated hypertension 03/03/2017 018 Other, multiple, and unspeci fied sites, insect bite, nonvenomous, without mention of infection(919.4) 06/17/201111/27 documented as of this encounter (statuses as of 02/07/2023) Immunizations Name Administration Dates Next Due COVID-19 mRNA, LNP-s, No Pre serve, 2-Dose Series ([employer]) 10/31/2020,10/10/2020 HEP A - Hepatitis A (Adult [...] as needed Dania Astudillo MD [facility] [place] [phone] PROCEDURE NOTE Referred by: Krys Flores PA-C [...] Consent signed yes documented in this encounter Plan of Treatment Upcoming Encounters Date Type Specialty Care Team Description 05/16/2023 Office Visit Family Medicine Alysha Gardiner DO [address] [place] [place] [phone] 02/10/2024 Office Visit Dermatology Krys Flores PA-C [address] [place] [address] [place] [phone] Pending Results Name Type Priority Associated Diagnoses Date /Time SURGICAL PATHOLOGY Pathology Routine Pigmented skin lesion of 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
--- OUTSIDE RECORDS SUMMARY | 2023-06-06 11:20 | External Medical Summary | Summary of Care ---
Author Name Unknown Organization [facility] Address [address] [place] [address] Phone [phone] Care Team Providers Care Process Manager Name Role Phone Zackery Rico DO Primary Care Provider Reason for Visit * Reason Comments eRx-Medication Refill Encounter Details Date Type Department Care Team Description 05/08/2023 Refill [facility] [address] [place] [address] Zackery Rico DO [address] [place] [address] Hypothyroidism due to acquired atrophy of thyroid Allergies Active Allergy Reactions Severity Noted Date Comments Adhesive Tape Rash 11/27/2012 Bandaid brand documented as of this encounter (statuses as of 05/08/2023) Medications Medication Sig Dispensed Refills Start Date End Date Status Multiple Vitamins-Minerals (MULTIVITAMIN ADULTS) TABS Take by mouth. 0 Active Losartan Potassium 100 MG Oral Tablet (Cozaar)Indication s:HTN, goal below 130/80 Take 1 Tablet by mouth in the morning. 90 Tablet 3 3 Active Estradiol 0.1 MG/GM Vaginal Cream (Estrace) DAILY 0 2 Active Zoster Vac Recomb Adjuvanted 50 MCG/0.5ML Intramuscular Suspension Reconstituted (Shingrix)Indicati ons:Need for shingles vaccine Inject 0.5 mL into a large muscle now and repeat dose in 60 to 180 days 1 Each 1 3 Active Metoprolol Succinate ER 25 MG Oral Tablet Extended Release 24 Hour (toPROL XL)Indications:HTN , goal below 130/80 Take 1 Tablet by mouth in the morning. 90 Tablet 2 3 Active Atorvastatin Calcium 10 MG Oral Tablet (Lipitor) Take 1 Tablet by mouth in the morning. 90 Tablet 3 3 Active hydroCHLOROthiazid e 25 MG Oral Tablet (Hydrodiuril) TAKE 1 TABLET BY MOUTH EVERY DAY IN THE MORNING 90 Tablet 1 3 Active Levothyroxine Sodium 100 MCG Oral Tablet (Levoxyl)Indicatio ns:Hypothyroidism due to acquired atrophy of thyroid Take 1 Tablet by mouth in the morning. (at least 30 min prior to breakfast or other meds). 30 Tablet 2 3 08/06/19 24 Active hydroCHLOROthiazid e 25 MG Oral Tablet (Hydrodiuril) Take 1 Tablet by mouth in the morning. 90 Tablet 1 3 05/08/20 23 Discontinued Levothyroxine Sodium 100 MCG Oral Tablet (Levoxyl)Indicatio ns:Hypothyroidism due to acquired atrophy of thyroid Take 1 Tablet by mouth in the morning for 90 doses. (at least 30 min prior to breakfast or other meds). 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/17) PAT (paroxysmal atrial tachycardia) 02/2020 HTN, goal below 130/80 03/06/2018 Hypothyroidism due to acquired atrophy o f thyroid 03/05/2018 Herpes zoster without complications 01/25 Hx of actinic keratosis 01/05/2015 documented as of this encounter (statuses as of 05/08/2023) Resolved Problems Problem Noted Date Resolved Date Accelerated hypertension 03/03/2017 018 Other, multiple, and unspeci fied sites, insect bite, nonvenomous, without mention of infection(919.4) 06/17/201111/27 documented as of this encounter (statuses as of 05/08/2023) Immunizations Name Administration Dates Next Due COVID-19 mRNA, LNP-s, No Pre serve, 2-Dose Series (Pfizer) 10/31/2020,10/10/2020 HEP A - Hepatitis A (Adult > 18 yrs) 09/08/2019 SEASONAL INFLUENZA, PF, 6 M & Above, IM , (FLULAVAL or FLUZONE) 06/01/2022,04/26/2021,04/21/2020 Seasonal Influenza, Quadrivalent, ID 04/28/2019 Seasonal Influenza, [...] encounter Miscellaneous Notes * Telephone Encounter - Darrion Ruth, [facility] - 05/08/2023 2:20 PM EDT Signed Prescriptions: Disp Refills hydroCHLOROthiazide 25 MG Oral Tablet (Hyd*90 Tab*1 Sig: TAKE 1 TABLET BY MOUTH EVERY DAY IN THE MORNINGAuthorizing Provider: ZACKERY RICO Levothyroxine [id number] MCG Oral Tablet (*30 Tab*2 Sig: Take 1 Tablet by mouth in the morning. (at least 30 min prior to breakfast or other meds).Authorizing Provider: ZACKERY RICO * Telephone Encounter - Zackery Rico DO - 05/08/2023 2:19 PM EDTSigned Prescriptions: Disp Refills hydroCHLOROthiazide 25 MG Oral Tablet (Hyd*90 Tab*1 Sig: TAKE 1 TABLET BY MOUTH EVERY DAY IN THE MORNINGAuthorizing Provider: ZACKERY RICO Levothyroxine [id number] MCG Oral Tablet (*30 Tab*2 Sig: Take 1 Tablet by mouth in the morning. (at least 30 min prior to breakfast or other meds).Authorizing Provider: ZACKERY RICO documented in this encounter Plan of Treatment Upcoming Encounters Date Type Specialty Care Team Description 05/26/2023 Office Visit Family Medicine [facility] [address] [facility] [phone] 06/11/2023 Office Visit Cardiology Makenna Bowden CRNP [address] [place] [address] 02/10/2024 Office Visit Dermatology Krys Flores PA-C [address] [place] [address] [place] [address] Health Maintenance Due Date Last Done Comments HIV Screening 1975 Fecal Occult Blood Test 2005 Sigmoidoscopy 2005 Colonoscopy 09/07/2020 09/07/2010 Albumin/Creatinine Ratio 03/05/2021 03/05/2018 Depression Screening 04/26/2022 04/26/2021 Zoster Vaccines (2 of 2) 03/05/2023 01/08/2023 COVID-19 Vaccine (3 - 2022- season) 2023 10/31/2020, 10/10/2020 Influenza Vaccine (FLU shot) (#1) 2023 06/01/2022, [...] thyroid documented in this encounter Care Teams Process Manager Relationship Specialty Start Date End Date Zackery Rico, [address] [place] [address] PCP - General Family Medicine 11/22/19 documented as of this encounter
--- OUTSIDE RECORDS SUMMARY | 2023-06-06 11:20 | External Medical Summary | Summary of Care ---
Author Name Unknown Organization [facility] Address [address] [address] Phone [phone] Care Team Providers Care Fresh Food Manager Name Role Phone Zackery Rico DO Primary Care Provider Reason for Visit * Reason Onset Date Comments Medication Refill 05/05/2023 Encounter Details Date Type Department Care Team Description 05/05/2023 Refill [facility] [address] [place] [address] Zackery Rico DO [address] [place] [address] Hypothyroidism due to acquired atrophy of thyroid Allergies Active Allergy Reactions Severity Noted Date Comments Adhesive Tape Rash 11/27/2012 Bandaid brand documented as of this encounter (statuses as of 05/06/2023) Medications Medication Sig Dispensed Refills Start Date [...] breakfast or other meds). 30 Tablet 6 05/06/2023 4 Active Levothyroxine Sodium 100 MCG Oral Tablet (Levoxyl)Indication s:Hypothyroidism due to acquired atrophy of thyroid Take 1 Tablet by mouth in the morning. (at least 30 min prior to breakfast or other meds). 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/17) PAT (paroxysmal atrial tachycardia) 02/2020 HTN, goal below 130/80 03/06/2018 Hypothyroidism due to acquired atrophy o f thyroid 03/05/2018 Herpes zoster without complications 01/25 Hx of actinic keratosis 01/05/2015 documented as of this encounter (statuses as of 05/06/2023) Resolved Problems Problem Noted Date Resolved Date Accelerated hypertension 03/03/2017 018 Other, multiple, and unspeci fied sites, insect bite, nonvenomous, without mention of infection(919.4) 06/17/201111/27 documented as of this encounter (statuses as of 05/06/2023) Immunizations Name Administration Dates Next Due COVID-19 [...] encounter Miscellaneous Notes * Telephone Encounter - Zakcery Rico DO - 05/06/2023 7:29 AM EDTSigned Prescriptions: Disp Refills Levothyroxine Sodium 100 MCG Oral Tablet (*30 Tab*6 Sig: Take 1 Tablet by mouth in the morning for 90 doses. (at least 30 min prior to breakfast or other meds).Authorizing Provider: ZACKERY RICO documented in this encounter Plan of Treatment Upcoming Encounters Date Type Specialty Care Team Description 05/26/2023 Office Visit Family Medicine Zackery Rico DO [address] [place] [address] 06/11/2023 Office Visit Cardiology Makenna Bowden CRNP [address] [place] [address] 02/10/2024 Office Visit Dermatology Krys Flores PA-C [address] [place] [address] [place] [address] Health Maintenance Due Date Last Done Comments HIV Screening 1975 Fecal Occult Blood Test 2005 Sigmoidoscopy 2005 Colonoscopy 09/07/2020 09/07/2010 Albumin/Creatinine Ratio 03/05/2021 03/05/2018 Depression Screening 04/26/2022 04/26/2021 Zoster Vaccines (2 of 2) 03/05/2023 01/08/2023 COVID-19 Vaccine ( season) 2023 10/31/2020, 10/10/2020 Influenza Vaccine (FLU [...] thyroid documented in this encounter Care Teams Fresh Food Manager Relationship Specialty Start Date End Date Zackery Rico, DO [address] [place] [address] PCP - General Family Medicine 11/22/19 documented as of this encounter
--- OUTSIDE RECORDS SUMMARY | 2023-06-06 11:21 | External Medical Summary | Summary of Care ---
Author Name Unknown Organization [facility] Address [address] [place] [address] Phone [phone] Care Team Providers Care Bolt Man Name Role Phone Zackery Gardiner DO Primary Care Provider [phone] Encounter Details Date Type Department Care Team Description 12/04/2022 Refill [facility] [address] [place] [address] Zackery Gardiner DO [address] [place] [address] HTN, goal below 130/80 Allergies Active Allergy Reactions Severity Noted Date Comments Adhesive Tape Rash 11/27/2012 Bandaid brand documented as of this encounter (statuses as of 12/04/2022) Medications Medication Sig Dispensed Refills Start Date End Date Status Multiple Vitamins-Minerals (MULTIVITAMIN ADULTS) TABS Take by mouth. 0 Active Losartan Potassium 100 MG Oral Tablet (Cozaar)Indications :HTN, goal below 130/80 Take 1 Tablet by mouth in the morning. 90 Tablet 3 09/04/2022 Active hydroCHLOROthiazide 25 MG Oral Tablet (Hydrodiuril) Take 1 Tablet by mouth in the morning. 90 Tablet 1 09/18/2022 Active Levothyroxine Sodium 125 MCG Oral Tablet (Levoxyl)Indication s:Hypothyroidism due to acquired atrophy of thyroid (at least 30 min prior to breakfast or other meds) 90 Tablet 1 09/18/2022 Active Estradiol 0.1 [...] the morning. 90 Tablet 2 12/04/2022 Active Metoprolol Succinate ER 25 MG Oral Tablet Extended Release 24 Hour (toPROL XL)Indications:HTN, goal below 130/80 TAKE 1 TABLET BY MOUTH EVERY DAY 30 Tablet 2 11/02/2022 3 Discontinue d(Refill) documented as of this encounter (statuses as of 12/04/2022) Active Problems Problem Noted Date PAT (paroxysmal atrial tachycardia) 02/2020 HTN, goal below 130/80 03/06/2018 Hypothyroidism due to acquired atrophy o f thyroid 03/05/2018 Herpes zoster without complications 01/25 Hx of actinic keratosis 01/05/2015 documented as of this encounter (statuses as of 12/04/2022) Resolved Problems Problem Noted Date Resolved Date Accelerated hypertension 03/03/2017 018 Other, multiple, and unspeci fied sites, insect bite, nonvenomous, without mention of infection(919.4) 06/17/201111/27 documented as of this encounter (statuses as of 12/04/2022) Immunizations Name Administration Dates Next Due COVID-19 mRNA, LNP-s, No Pre serve, 2-Dose Series ([employer]) 10/31/2020,10/10/2020 HEP A - Hepatitis A (Adult [...] Miscellaneous Notes * Telephone Encounter - Zackery Gardiner DO - 12/04/2022 2:09 PM EDTSigned Prescriptions: Disp Refills Metoprolol Succinate ER 25 MG Oral Tablet *90 Tab*2 Sig: Take 1 Tablet by mouth in the morning. Authorizing Provider: ZACKERY GARDINER * Telephone Encounter - Marcela Waldrop LPN - 12/04/2022 11:11 AM EDT Did you pend patient's preferred pharmacy and medication before forwarding?yes Pharmacy: [id number] [address] [place] [address] Pending Prescriptions: Disp Refills Metoprolol Succinate ER 25 MG Oral Tablet*90 Tab*2 Sig: Take 1 Tablet by mouth in the morning. Last Visit: 11/14/2022 (in office), Visit date not found (telemedicine) Next Visit: 05/16/2023 If no future appointments scheduled, and last appointment is greater than a year ago, please schedule patient for a follow-up appointment Last date the medication was ordered: Pharmacy requesting 90 day supply. Is this request for a controlled substance?No Urine Drug Screen:No results found for this or any previous visit. Patient Phone Numbers Labs: Lab Results Component Value Date/Time CREAT 0.9 11/14/2022 09:20 AM CREAT 0.75 10/18/2021 12:00 AM CREAT 0.7 03/05/2018 10:53 AM POTASSIUM 4.2 11/14/2022 09:20 AM POTASSIUM 3.8 10/18/2021 12:00 AM POTASSIUM 4.1 03/05/2018 10:53 AM TSH 0.09 (L) 11/14/2022 09:20 AM TSH 0.180 (A) 10/18/2021 12:00 AM TSH 0.05 (L) 03/05/2018 10:53 AM LDLCALC 143 (H) 11/14/2022 09:20 AM LDLCALC 137 10/18/2021 12:00 AM LDLCALC 127 06/14/2014 10:40 AM LDLDIRECT NOT APPLICABLE 06/14/2014 10:40 AM ALT 34 11/14/2022 09:20 AM ALT 35 10/18/2021 12:00 AM HGBA1C 5.6 03/03/2017 04:01 PM documented in this encounter Plan of Treatment Upcoming Encounters Date Type Specialty Care Team Description 02/11/2023 Office Visit Dermatology Tosin Grider PA-C [address] [facility] [place] [address] 05/16/2023 Office Visit Family Medicine Zackery Gardiner, [address] [place], [place] [address] [address] Health Maintenance Due Date Last Done Comments HIV Screening 1975 Fecal Occult Blood Test 2005 Sigmoidoscopy 2005 Zoster Vaccines (1 of 2) 2010 Colonoscopy 09/07/2020 09/07/2010 COVID-19 Vaccine (3 - Booster for Pfizer series) 12/26/2020 10/31/2020, 10/10/2020 Albumin/Creatinine Ratio 03/05/2021 03/05/2018 PAP SMEAR-EVERY 3 YRS,AGES 18-100 03/09/2021 03/09/2018, 02/12/2017, 02/12/2016, Additional history exists Depression Screening, Annual for Pts 12 and Over 04/26/2022 04/26/2021 Cologuard 06/03/2023 06/03/2020 Colorectal Cancer Screening 06/03/2023 Mammogram 06/06/2023 06/06/2022, 04/28, 05/09/2021, Additional history exists GFR - Renal Function 11/15/2023 11/14/2022, 10/18/2021, 09/21/2020, Additional history exists TSH FOR THYROID MEDICATION MONITORING YEARLY 11/15/2023 11/14/2022, 10/18/2021, 09/21/2020, Additional history exists Diabetes Screening 11/14/2025 11/14/2022, [...] encounter Visit Diagnoses Diagnosis HTN, goal below 130/80 Unspecified essential hypertension documented in this encounter Care Teams Bolt Man Relationship Specialty Start Date End Date Zackery Gardiner DO [address] [place] [address] PCP - General Family Medicine 11/22/19 documented as of this encounter
--- OUTSIDE RECORDS SUMMARY | 2023-06-06 11:21 | External Medical Summary | Summary of Care ---
Author Name Unknown Organization [facility] Address [address] [address] Phone [phone] Care Team Providers Care Unix Manager Name Role Phone Alysha Gardiner DO Primary Care Provider [phone] Reason for Referral * Evaluate & Treat - Unlimited Visits (Within 3 days (urgent)) - Pending Review Specialty Diagnoses / Procedures Referred By [facility] branch Referred To Contact Dermatology Diagnoses Melanoma in situ of upper extremity, right (HCC) Krys Flores PA-C [address] [place] [address] [place] [address] Referral ID Status Reason Start Date Expiration Date Visits Requested Visits Authorized [id number] Pending Review Specialty Services Required 01/10/2023 999 [...] Care Team Description 01/10/2023 [place] [address] Krys Flores PA-C [address] [place] [address] [place] [phone] Test Results Biopsy; Appointment Allergies Active Allergy Reactions Severity Noted Date Comments Adhesive Tape Rash 11/27/2012 Bandaid brand documented as of this encounter (statuses as of 01/10/2023) Medications Medication Sig Dispensed Refills Start Date [...] as of this encounter (statuses as of 01/10/2023) Active Problems Problem Noted Date H/O melanoma in situ 01/10/2023 Overview: 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/17) PAT (paroxysmal atrial tachycardia) 02/2020 HTN, goal below 130/80 03/06/2018 Hypothyroidism due to acquired atrophy o f thyroid 03/05/2018 Herpes zoster without complications 01/25 Hx of actinic keratosis 01/05/2015 documented as of this encounter (statuses as of 01/10/2023) Resolved Problems Problem Noted Date Resolved Date Accelerated hypertension 03/03/2017 018 Other, multiple, and unspeci fied sites, insect bite, nonvenomous, without mention of infection(919.4) 06/17/201111/27 documented as of this encounter (statuses as of 01/10/2023) Immunizations Name Administration Dates Next Due COVID-19 mRNA, LNP-s, No Pre serve, 2-Dose Series ([employer]) 10/31/2020,10/10/2020 HEP A - Hepatitis A (Adult [...] Telephone Encounter - Clare Melgar, URBAN - 01/10/2023 3:[address] Astudillo, YANIQUE mohs or OPS/excison for lesion A? * Telephone Encounter - Krys Flores PA-C - 01/10/2023 2:56 PM EDT Spoke to pt regarding bx results. Early evolving melanoma in situ on R forearm, plan for Mohs OPS excision in [place]. No further tx needed to R toe. Pt is aware she will be called to schedule the appt. MILDRED Jay. Skin, R distal forearm, shave: Atypical epidermal [...] forearm, plan for Mohs OPS excision in [place]. No further tx needed to R toe. Krys R. Mark [facility], PA-C A. Skin, R distal forearm, shave: Atypical [...] 05/16/2023 Office Visit Family Medicine [facility]sha Gardiner, [address] [facility] [address] 02/10/2024 Office Visit Dermatology Krys Flores PA-C [address] [place] [address] [place] [address] Scheduled Referrals Name Type Priority Associated Diagnoses [...] Primary documented in this encounter Care Teams Unix Manager Relationship Specialty Start Date End Date Alysha Gardiner, [address] [place] [address] PCP - General Family Medicine 11/22/19 documented as of this encounter
--- OUTSIDE RECORDS SUMMARY | 2023-06-06 11:21 | External Medical Summary | Summary of Care ---
Author Name Unknown Organization [facility] Address [address] [address] Phone [phone] Care Team Providers Care Associate Material Handler Name Role Phone Alysha Gardiner DO Primary Care Provider [phone] Reason for Visit * Reason Onset Date Comments Health Maintenance 01/08/2023 Encounter Details Date Type Department Care Team Description 01/08/2023 Telephone [facility] [address] [place] [facility] [place] [facility] [place] [address] Alysha Gardiner DO [address] [place] [address] Health Maintenance Allergies Active Allergy Reactions Severity Noted Date Comments Adhesive Tape Rash 11/27/2012 Bandaid brand documented as of this encounter (statuses as of 01/08/2023) Medications Medication Sig Dispensed Refills Start Date [...] as of this encounter (statuses as of 01/08/2023) Active Problems Problem Noted Date PAT (paroxysmal atrial tachycardia) 02/2020 HTN, goal below 130/80 03/06/2018 Hypothyroidism due to acquired atrophy o f thyroid 03/05/2018 Herpes zoster without complications 01/25 Hx of actinic keratosis 01/05/2015 documented as of this encounter (statuses as of 01/08/2023) Resolved Problems Problem Noted Date Resolved Date Accelerated hypertension 03/03/2017 018 Other, multiple, and unspeci fied sites, insect bite, nonvenomous, without mention of infection(919.4) 06/17/201111/27 documented as of this encounter (statuses as of 01/08/2023) Immunizations Name Administration Dates Next Due COVID-19 mRNA, LNP-s, No Pre serve, 2-Dose Series ([employer]) 10/31/2020,10/10/2020 HEP A - Hepatitis A (Adult [...] encounter Miscellaneous Notes * Telephone Encounter - Jeni Marshall LPN - 01/08/2023 3:37 PM EDT Care Gaps Comprehensive Care Outreach Last Office/Telemedicine Visit: 11/14/2022 (in office), Visit date not found (telemedicine) Next Office Visit: 05/16/2023 Hemoglobin AIC Results: Lab Results Component Value Date/Time HEMOGLOBIN A1C - [facility] 5.6 03/03/2017 04:01 PM HEMOGLOBIN A1C - [facility] 5.5 06/14/2014 10:40 AM Reviewed Health Maintenance below: Health Maintenance Topic Date Due HIV Screening Never done Zoster Vaccines (1 of 2) Never done COVID-19 Vaccine (3 - Pfizer series) 12/26/2020 Albumin/Creatinine Ratio 03/05/2021 PAP SMEAR-EVERY 3 YRS,AGES 18-100 03/09/2021 Depression Screening, Annual for Pts 12 and Over 04/26/2022 Colorectal Cancer Screening 06/03/2023 Urine already ordered Pap Dr[facility] Farr [facility] Colon colo guard follow not due yet spoke to patient too soon Care Gap Outreach Action Taken: Spoke to patient documented in this encounter Plan of Treatment Upcoming Encounters Date Type Specialty Care Team Description 05/16/2023 Office Visit Family Medicine Alysha Gardiner DO [address] [facility] [place] [address] 02/10/2024 Office Visit Dermatology Krys Flores PA-C [address] [place] [address] [place] [address] Health Maintenance Due Date Last Done Comments HIV Screening 1975 Fecal Occult Blood Test 2005 Sigmoidoscopy 2005 Zoster Vaccines (1 of 2) 2010 Colonoscopy 09/07/2020 09/07/2010 COVID-19 Vaccine (3 - Pfizer series) 12/26/2020 10/31/2020, 10/10/2020 Albumin/Creatinine Ratio 03/05/2021 03/05/2018 PAP SMEAR-EVERY 3 YRS,AGES 18-100 03/09/2021 03/09/2018, 02/12/2017, 02/12/2016, Additional history exists Depression Screening, Annual for Pts 12 and Over 04/26/2022 04/26/2021 Cologuard 06/03/2023 06/03/2020, 08/2019, 05/29/2020 Colorectal Cancer [...] filedocumented as of this encounter Care Teams Associate Material Handler Relationship Specialty Start Date End Date Alysha Gardiner, DO [address] [place] [address] PCP - General Family Medicine 11/22/19 documented as of this encounter
--- OUTSIDE RECORDS SUMMARY | 2023-06-06 11:21 | External Medical Summary | Summary of Care ---
Author Name Unknown Organization [facility] Address [address] [address] Phone [phone] Care Team Providers Care Vertical Roll Operator Name Role Phone Alysha Gardiner DO Primary Care Provider [phone] Reason for Referral * Evaluate & Treat - Unlimited Visits (Within 3 days (urgent)) - Pending Review Specialty Diagnoses / Procedures Referred By [facility] branch Referred To Contact Dermatology Diagnoses Melanoma in situ of upper extremity, right (HCC) Krys Flores PA-C [address] [place] [address] [place] [address] Referral ID Status Reason Start Date Expiration Date Visits Requested Visits Authorized [id number] Pending Review Specialty Services Required 01/10/2023 999 [...] Care Team Description 01/10/20[address] [place] [address] Krys Flores PA-C [address] [place] [address] [place] [phone] Test Results Biopsy; Appointment Allergies Active Allergy [...] mRNA, LNP-s, No Pre serve, 2-Dose Series ([employer]) 10/31/2020,10/10/2020 HEP A - Hepatitis A (Adult [...] encounter Miscellaneous Notes * Telephone Encounter - Krys Flores PA-C - 01/10/2023 2:56 PM EDT Spoke to pt regarding bx results. Early evolving melanoma in situ on R forearm, plan for Mohs OPS excision in [facility]. No further tx needed to R [...] forearm, plan for Mohs OPS excision in [facility]. No further tx needed to R toe. MILDRED Jay. Skin, R distal forearm, shave: [...] Family Medicine Alysha Gardiner, [facility] [address] [facility] [address] 02/10/2024 Office Visit Dermatology Krys Flores PA-C [address] [place] [address] [place] [address] Scheduled Referrals Name Type Priority Associated Diagnoses [...] Primary documented in this encounter Care Teams Vertical Roll Operator Relationship Specialty Start Date End Date Alysha Gardiner DO [address] [place] [address] PCP - General Family Medicine 11/22/19 documented as of this encounter
--- OUTSIDE RECORDS SUMMARY | 2023-06-06 11:21 | External Medical Summary | Summary of Care ---
Author Name Unknown Organization [facility] Address [address] [address] Phone [phone] Care Team Providers Care Facepiece Line Supervisor Name Role Phone Zackery Rico DO Primary Care Provider Reason for Visit * Reason Comments Follow Up Pt here for yearly s kin exam. Concerned with lesion on R side of face and on R arm. Pt states she only just recently noticed both spots. Encounter Details Date Type Department Care Team Description 01/07/2023 Office Visit DermatologyNan [address] [place] [address] [place] [address] Krys Flores PA-C [address] [place] [address] [place] [address] Neoplasm of uncertain behavior of skin*; Seborrheic keratosis; Skin exam, screening for cancer; Multiple nevi; Hx of actinic keratosis Allergies Active Allergy Reactions Severity Noted Date Comments Adhesive Tape Rash 11/27/2012 Bandaid brand documented as of this encounter (statuses as of 01/07/2023) Medications Medication Sig Dispensed Refills Start Date [...] Active Levothyroxine Sodium 125 MCG Oral Tablet (Levoxyl)Indications: Hypothyroidism due to acquired atrophy of thyroid (at [...] the morning. 90 Tablet 2 12/04/2022 Active documented as of this encounter (statuses as of 01/07/2023) Active Problems Problem Noted Date PAT (paroxysmal atrial tachycardia) 02/2020 HTN, goal below 130/80 03/06/2018 Hypothyroidism due to acquired atrophy o f thyroid 03/05/2018 Herpes zoster without complications 01/25 Hx of actinic keratosis 01/05/2015 documented as of this encounter (statuses as of 01/07/2023) Resolved Problems Problem Noted Date Resolved Date Accelerated hypertension 03/03/2017 018 Other, multiple, and unspeci fied sites, insect bite, nonvenomous, without mention of infection(919.4) 06/17/201111/27 documented as of this encounter (statuses as of 01/07/2023) Immunizations Name Administration Dates Next Due COVID-19 mRNA, LNP-s, No Pre serve, 2-Dose Series ([employer]) 10/31/2020,10/10/2020 HEP A - Hepatitis A (Adult [...] on file documented as of this encounter Patient Instructions * Patient Instructions* Krys Flores PA-C - 01/07/2023 1:43 PM EDT SUNSCREEN USE AND SUN PROTECTION: 1. The best protection is sun avoidance. Seek shade if you can, especially between 10am to 4pm (peak sun hours). 2. Use sunscreen with an SPF (Sun Protection Factor - the number on most sunscreen bottles) of 30 or more that protects from Ultraviolet A (UVA) and Ultraviolet B (UVB) wavelength light (strongly recommend SPF 50). This is referred to as broad spectrum sun protection because it protects from most wa velengths in both spectrums of UVA and UVB light. Unfortunately, even though the protection is broad it is not complete, therefore making sun avoidance the best protection. UVB and UVA have both beenimplicated in causing skin cancers. Older sunscreens only protected from UVB and sunscreens with added UVA protection should contain Titanium dioxide, Zinc oxide, or Avobenzone. Other oil free, non-comedogenic lotion with SPF 30 or greater is fine. 3. Use sun protection if outside for 15 minutes or more. Apply 20-30 minutes before going out and reapply every 1-2 hours. No sunscreen is truly water ''proof'' and it will wash away with sweat, swimming and rubbing. 4. Wear tightly woven, loose fitting (cooler) long sleeved clothing, UV-blocking sun glasses (eyes need protection as well) and wide-brimmed hatwear (no straw hats with holes because light still getsthrough). Strongly recommended *Neutrogena Pure and Free Baby SPF 60 (have separate face and body lotions) orCeraVe AM facial lotion (with SPF 30). If looking for non toxic alternatives-look for non-gi particle zinc. Product examples; Think sport, Think baby, Ayleen, Babo botanicals, [employer], [place] baby. "Baby" products can be used for all ages. documented in this encounter Progress Notes * Lo Hogue MD - 01/07/2023 4:20 PM EDT I have seen and examined the patient via teledermatology review of chart note and photos with Krys Flores PA-C. I have reviewed and agree with the assessment and plan. Lo Hogue MD * Krys Flores PA-C - 01/07/2023 1:20 PM EDT SUBJECTIVE: HPI: Maliha Jorge is a 62 year old female seen at the request of Self for evaluation and treatment of lesions/full skin exam. Annual vulvar exams performed, no vulvar discoloration and/or lesions to be assessed per pt. - Tanning bed history. + Blistering sunburns. Lesion on R face, recently noticed. Asymptomatic, no tx to date. Raised. Lesion on R arm, recently noticed. Asymptomatic, no tx to date. Flat. Previous Dr. Ramirez and Yana Grider PA-C patient. Wood Scaler Documentation Patient offered executive legal secretary and declined. REVIEW OF SYSTEMS: SKIN: No other new or changing moles. HEME/LYMPH: No new or enlarging lumps or bumps. CONSTITUTIONAL: No nausea, vomiting, fevers, chills, diarrhea. No recent unintended weight loss, night sweats, appetite or malaise. RESP: negative MSK/EXT: Negative or as per HPI GI: negative CV: Negative or as per HPI Rest of systems are negative or as per HPI SKIN CANCER HX: NONE, actinic keratoses Reviewed, same day as visit, 2 [facility] Dermatology lab work(s)/pathology report(s) as well as those sent by referring provider prior to seeing pt. Past Medical History: Diagnosis Date Accelerated hypertension 03/03/2017 Herpes zoster without complications 01/2017 Right T3 dermatome; confirmed with viral culture HTN, goal below 130/80 03/06/2018 Hypothyroidism FAMILY HISTORY: Skin CA: None Skin Disorders: none SOCIAL HISTORY: Social History Tobacco Use Smoking status: Never Passive exposure: Never Smokeless tobacco: Never Substance Use Topics Alcohol use: Yes Comment: weekends Vaping/E-Cigarette Use Vaping/E-Cigarette Use Never User Vaping/E-Cigarette Substances Vaping/E-Cigarette Devices MEDICA TIONS: Current Outpatient Medications Medication Sig Dispense Refill Multiple Vitamins-Minerals (MULTIVITAMIN ADULTS) TABS Take by mouth. Losartan Potassium 100 MG Oral Tablet (Cozaar) Take 1 Tablet by mouth in the morning. 90 Tablet3 hydroCHLOROthiazide 25 MG Oral Tablet (Hydrodiuril) Take 1 Tablet by mouth in the morning. 90 Tablet 1 Levothyroxine Sodium 125 MCG Oral Tablet (Levoxyl) (at least 30 min prior to breakfast or othermeds) 90 Tablet 1 Zoster Vac Recomb Adjuvanted 50 MCG/0.5ML Intramuscular Suspension Reconstituted (Shingrix) Inject 0.5 mL into a large muscle now and repeat dose in 60 to 180 days 1 Each 1 Metoprolol Succinate ER 25 MG Oral Tablet Extended Release 24 Hour (toPROL XL) Take 1 Tablet bymouth in the morning. 90 Tablet 2 Estradiol 0.1 MG/GM Vaginal Cream (Estrace) DAILY (Patient not taking: Reported on 01/07/2023) No current facility-administered medications for this visit. ALLERGY: Adhesive tape OBJECT RUBEN: GEN: alert, no distress, appears oriented, pleasant and cooperative. SKIN: Detailed exam of hair, face including lids and lips, neck, chest, abdomen, back, bilateral upper ext. (arm, hand, fingers), bilateral lower ext. (leg, foot, toes), palpation of scalp, fingernail czech present, toenail czech present, inguinal areas, groin (mons pubis), buttocks and anus completed: 1A. R distal forearm-7x3mm light-medium brown irregular macule. 2B. R medial 1st toe-5x5mm light brown irregular macule with tail. 3. R episcopal/neck/trunk/bilat arms and legs-Some sharply defined, variegated brown, waxy flat papules with velvety to finely verrucous surfaces. 4. Face/trunk/bilat arms and legs-About 125 total; 2-5mm light and light-medium brown macules and soft papules. ASSESS MENT/PLAN: 1A. Nevus, r/o atypia on R distal forearm-Shave removal of the lesion noted above to remove and confirm diagnosis. The procedure, risks including but not limited to; (scarring, bleeding, infection, pain, and bruising), benefits, alternatives and expected outcomes were discussed with the patient, and obtained verbal consent from pt. Time out called. Patient identified, procedure verified, site identified and verified. Patient and staff present in agreement. Area prepped with alcohol and anesthetized using 1cc of 0.2% concentration of Ropivicaine. Shave of lesion performed. 20% AlCl and bandaging applied. Specimen sent to pathology. Patient instructed in routine post-op care and given wound ca re pamphlet. 2B. Acral nevus, r/o atypia on R medial 1st toe-Shave removal of the lesion noted above to remove and confirm diagnosis. The procedure, risks including but not limited to; (scarring, bleeding, infection, pain, and bruising), benefits, alternatives and expected outcomes were discussed with the patient, and obtained verbal consent from pt. Time out called. Patient identified, procedure verified, site identified and verified. Patient and staff present in agreement. Area prepped with alcohol and anesthetized using 2cc of 0.2% concentration of Ropivicaine. Shave of lesion performed. 20% AlCl and bandaging applied. Specimen sent to pathology. Patient instructed in routine post-op care and given wound care pamphlet. 3. Seborrheic/Benign Keratosis(-es) on R episcopal/neck/trunk/bilat arms and legs- no tx needed, pt given reassurance and written education about diagnosis. 4. Nevi on face/trunk/bilat arms and legs-no tx needed, pt given reassurance and written education about diagnosis. Skin cancer brochure given and ABCDE's discussed with patient. Annual full body skin examination (unless I recommended otherwise), self-examination, and sun protection (SPF 30+ daily to sun exposed areas, with reapplication every 1-2 hours when out in sun for long periods of time) advised and discussed. Recommended sooner follow up for new or changing lesions. These changes include rapid enlargement, changes in color or shape or symptoms, bleeding, or other concerns. The common features and behavior of non-melanoma skin cancers (e.g. BCC/SCC) as well as the ABCDEs and ugly duckling features of melanoma were also reviewed. Patient alone today. Photo(s) of #1-4 taken, pt verbally consented to having photo(s) taken. Follow-up: 1 year for full skin exam Contact patient via cell phone Ok to leave results on message: Yes Able to speak to none Synchronized [phone] Photos (if taken) and chart were reviewed by Dr. Lo Hogue. Presum ed diagnoses, expected natural histories, and management options discussed with the patient at length. Questions were addressed and anticipatory guidance provided. They were instructed to contact me if additional questions, concerns, or problems develop in the interim. -There were no barriers to learning and no other pain was related to today's visit. The patient and/or person accompanying patient demonstrates understanding of the visit and treatment. Krys Flores PA-C 01/07/2023 12:58 PM Ref: SELF[[id number]] NO STREET ADDRESS AVAILABLE None (office) None (fax) PCP: ZACKERY RCIO [address] [place] [address] documented in this encounter Nursing Notes * Irina Pimentel LPN - 01/07/2023 1:18 PM EDT Patient identified by full name and date of Chief Complaint Patient presents with Follow Up Pt here for yearly skin exam. Concerned with lesion on R side of face and on R arm. Pt states she only just recently noticed both spots. documented in this encounter Plan of Treatment Upcoming Encounters Date Type Specialty Care Team Description 05/16/2023 Office Visit Family Medicine Zackery Rico DO [address] [place] [address] 02/10/2024 Office Visit Dermatology Krys Flores PA-C [address] [place] [address] [place] [phone] Pending Results Name Type Priority Associated Diagnoses Date /Time SURGICAL PATHOLOGY Pathology Routine Neoplasm of uncertain behavior of skin 01/07/2023 2:00 PM EDT Health Maintenance Due Date Last [...] Procedure Name Priority Date/Time Associated Diagnosis Comments DERM IMAGE (SITE) Routine 01/07/2023 Seborrheic keratosis Skin exam, screening for cancer Neoplasm of uncertain behavior of skin Multiple nevi Hx of actinic keratosis documented in this encounter Results * DERM IMAGE (SITE) (01/07/2023) 01/07/2023 Krys Flores PA-C DIGITAL PHOTOG MADI documented in this encounter Visit Diagnoses Diagnosis Neoplasm of uncertain behavior of skin- Primary Seborrheic keratosis Other seborrheic keratosis Skin exam, screening for cancer Screening for malignant neoplasm of the skin Multiple nevi Benign neoplasm of skin, site unspecified Hx of actinic keratosis Personal history of diseases of skin and subcutaneous tissue documented in this encounter Care Teams Facepiece Line Supervisor Relationship Specialty Start Date End Date Zackery Rico, [address], [place] [phone] PCP - General Family Medicine 11/22/19 documented as of this encounter
--- OUTSIDE RECORDS SUMMARY | 2023-06-06 11:21 | External Medical Summary | Summary of Care ---
Author Name Unknown Organization [facility] Address [address] [place] [address] Phone [phone] Care Team Providers Care Hand Weaver Name Role Phone Alysah Gardiner DO Primary Care Provider [phone] Encounter Details Date Type Department Care Team Description 12/05/2022 Orders Only [facility] [address] [place] [address] Alysha Gardiner DO [address] [place] [address] Allergies Active Allergy Reactions Severity Noted Date Comments Adhesive Tape Rash 11/27/2012 Bandaid brand documented as of this encounter (statuses as of 12/05/2022) Medications Medication Sig Dispensed Refills Start Date [...] as of this encounter (statuses as of 12/05/2022) Active Problems Problem Noted Date PAT (paroxysmal atrial tachycardia) 02/2020 HTN, goal below 130/80 03/06/2018 Hypothyroidism due to acquired atrophy o f thyroid 03/05/2018 Herpes zoster without complications 01/25 Hx of actinic keratosis 01/05/2015 documented as of this encounter (statuses as of 12/05/2022) Resolved Problems Problem Noted Date Resolved Date Accelerated hypertension 03/03/2017 018 Other, multiple, and unspeci fied sites, insect bite, nonvenomous, without mention of infection(919.4) 06/17/201111/27 documented as of this encounter (statuses as of 12/05/2022) Immunizations Name Administration Dates Next Due COVID-19 mRNA, LNP-s, No Pre serve, 2-Dose Series ([employer]) 10/31/2020,10/10/2020 HEP A - Hepatitis A (Adult [...] 02/11/2023 Office Visit Dermatology Tosin Grider PA-C [address] [facility] [place] [address] [address] 05/16/2023 Office Visit Family Medicine Alysha Gardiner, [address] [place] [address] Health Maintenance Due Date Last Done Comments [...] 06/03/2020 Colorectal Cancer Screening 06/03/2023 Mammogram 06/06/2023 12/04/2022, 05/28, 05/22/2022, Additional history exists GFR - Renal Function [...] Procedure Name Priority Date/Time Associated Diagnosis Comments MAMMOGRAM DIAGNOSTIC RIGHT Routine 12/04/2022 documented in this encounter Results * MAMMOGRAM DIAGNOSTIC RIGHT (12/04/2022) Anatomical Region Laterality Modality Breast Right Other 12/04/2022 Malinda MARMOLEJO MAMMOGRA PHY documented in this encounter Care Teams Hand Weaver Relationship Specialty Start Date End Date Alysha Gardiner DO [address] [place], [place] [phone] PCP - General Family Medicine 11/22/19 documented as of this encounter
--- OUTSIDE RECORDS SUMMARY | 2023-06-06 11:21 | External Medical Summary | Summary of Care ---
Author Name Unknown Organization [facility] Address [address] [address] Phone [phone] Care Team Providers Care Agricultural Research Engineer Name Role Phone Alysha Gardiner DO Primary Care Provider Reason for Referral * Evaluate & Treat - Unlimited Visits (Within 3 days (urgent)) - Pending Review Specialty Diagnoses / Procedures Referred By Hermes branch Referred To Contact Dermatology Diagnoses Melanoma in situ of upper extremity, right (HCC) Krys Flores PA-C [address] [place] [address] [place] [id number] Referral ID Status Reason Start Date Expiration Date Visits Requested Visits Authorized [id number] Pending Review Specialty Services Required 01/10/2023 999 [...] Care Team Description 01/10/20[address] [place] [address] Krys Flores PA-C [address] [place] [address] [place] [phone] Test Results Biopsy; Appointment Allergies Active Allergy [...] mRNA, LNP-s, No Pre serve, 2-Dose Series ([employer]) 10/31/2020,10/10/2020 HEP A - Hepatitis A (Adult [...] encounter Miscellaneous Notes * Telephone Encounter - Dania Astudillo MD [...] forearm, plan for Mohs OPS excision in [facility]. No further tx needed to R toe. Pt is aware she will be called to schedule the appt. Krys Flores SMILDRED A. Skin, R distal forearm, shave: Atypical [...] forearm, plan for Mohs OPS excision in [facility]. No further tx needed to R toe. Krys Flores [facility], [place] A. Skin, R distal forearm, shave: [...] 05/16/2023 Office Visit Family Medicine Alysha Gardiner, [address] [place] [address] 02/10/2024 Office Visit Dermatology Krys Flores PA-C [address] [place] [address] [place] [phone] Scheduled Referrals Name Type Priority Associated Diagnoses [...] Primary documented in this encounter Care Teams Agricultural Research Engineer Relationship Specialty Start Date End Date Alysha Gardiner, DO [address] [place] [address] PCP - General Family Medicine 11/22/19 documented as of this encounter
--- OUTSIDE RECORDS SUMMARY | 2023-06-06 11:21 | External Medical Summary | Summary of Care ---
Author Name Unknown Organization [facility] Address [address] [address] Phone [phone] Care Team Providers Care Rehabilitation Caseworker Name Role Phone Zackery Rico DO Primary Care Provider Reason for Visit * Reason Comments Follow Up Pt here for yearly s kin exam. Concerned with lesion on R side of face and on R arm. Pt states she only just recently noticed both spots. Encounter Details Date Type Department Care Team Description 01/07/2023 Office Visit DermatologyNan [address] [place] [address] [place] [address] Krys Flores PA-C [address] [place] [address] [place] [id number] Neoplasm of uncertain behavior of skin*; Seborrheic [...] mRNA, LNP-s, No Pre serve, 2-Dose Series ([employer]) 10/31/2020,10/10/2020 HEP A - Hepatitis A (Adult [...] Product examples; Think sport, Think baby, Ayleen, [employer], [employer], [place] baby. "Baby" products can be used for all ages. documented in this encounter Progress Notes * Krys Flores PA-C - 01/07/2023 1:20 [...] Dr. Ramirez and Yana Grider PA-C patient. Melon Packer Documentation Patient offered engineering department chair and declined. REVIEW OF SYSTEMS: SKIN: No [...] keratoses Reviewed, same day as visit, 2 [facility] Dermatology lab work(s)/pathology report(s) as well [...] (leg, foot, toes), palpation of scalp, fingernail maltese present, toenail maltese present, inguinal areas, groin (mons pubis), buttocks and anus completed: 1A. R distal forearm-7x3mm light-medium brown irregular macule. 2B. R medial 1st toe-5x5mm light brown irregular macule with tail. 3. R moravian/neck/trunk/bilat arms and legs-Some sharply defined, variegated brown, [...] care pamphlet. 3. Seborrheic/Benign Keratosis(-es) on R moravian/neck/trunk/bilat arms and legs- no tx needed, pt [...] message: Yes Able to speak to none [place] [phone] Photos (if taken) and chart were reviewed [...] Krys Flores PA-C 01/07/2023 12:58 PM Ref: SELF[[id number]] NO STREET ADDRESS AVAILABLE None (office) None (fax) PCP: ZACKERY RICO [address] [place] [address] [phone] documented in this encounter Nursing Notes * [...] Family Medicine Zackery Rico DO [address] [place] [address] 02/10/2024 Office Visit Dermatology Krys Flores PA-C [address] [place] [address] [place] [phone] Pending Results Name Type Priority Associated Diagnoses [...] as of this encounter Visit Diagnoses Diagnosis Neoplasm of uncertain behavior of skin- Primary Seborrheic keratosis Other seborrheic keratosis Skin exam, screening for cancer Screening for malignant neoplasm of the skin Multiple nevi Benign neoplasm of skin, site unspecified Hx of actinic keratosis Personal history of diseases of skin and subcutaneous tissue documented in this encounter Care Teams Rehabilitation Caseworker Relationship Specialty Start Date End Date Zackery Rico, DO [address] [place], [place] [phone] PCP - General Family Medicine 11/22/19 documented as of this encounter
--- NOTE | 2023-06-07 17:19 | Discharge Summary ---
Discharge Summary Date of Service June 02, 2023 Notes For Next Care Provider Medication Changes From Visit New baby aspirin daily Admission HPI Per Admitting Provider History obtained from patient, family, and records. Medical history significant for hypertension, paroxysmal atrial tachycardia, hyperlipidemia, hypothyroidism. Last confinement 2004 under gynecology service for supracervical hysterectomy for rapidly growing fibroid uterus. Patient not feeling well since yesterday. Somewhat tired today. Patient later experience substernal pressure without radiation without shortness of breath or diaphoresis. No previous episodes. No unusual exertion. Patient does not check her blood pressure at home. Denies headache symptoms. Loose stools and burping later in the afternoon without abdominal pain. Patient consumed a burger at a local restaurant. No fever, no chills. Not sure about sick contacts, no recent antibiotic Rx. Chest discomfort improved after nitroglycerin administration at the ER. Aspirin, IV heparin initiated at the ER. Medical History as above Surgical History : Partial hysterectomy Family History : Heart disease Personal/Social history : Non-smoker, occasional EtOH intake, [employer] employee Principal Dx & Hospital Course #1 = Principal Diagnosis (1) Acute non-ST elevation myocardial infarction (NSTEMI): Plan 63-year-old female presented with fatigue and substernal chest pressure without radiation or shortness of breath or diaphoresis. Out of concern for non-ST elevation [place], aspirin and IV heparin was initiated. She had a mild leukocytosis of 14 on admission which improved throughout her admission. Initial highly sensitive troponin was 987 trending up to 1048 and then 516. Triglycerides were 69, LDL 91, total cholesterol of 165. HDL was 60. Urine was clear of infecti on. Nasal swab revealed no evidence of respiratory viral infection. Imaging included a chest x-ray revealed no acute chest disease. She was admitted to medicine with cardiology consultation. Initial EKG revealed sinus rhythm with a rate of 70 and a pulmonary disease pattern incomplete right bundle branch block and left anterior fascicular block. An echocardiogram revealed a normal ejection fraction of 55% with no significant valvular disease but there was mild hypokinesis of the posterior wall at the base and mid level and mid anterior wall. Given age and risk factors including hypertension, dyslipidemia, troponin pattern of elevation and clinical symptoms, cardiac catheterization was recommended. This revealed normal coronaries without significant atherosclerotic disease. She was recovered on telemetry and at time of discharge was hemodynamically stable and afebrile and tolerating p.o. She was sent home in stable condition with close primary care follow-up recommended. Postcardiac catheterization guidelines including activity restrictions were explained to the patient who verbalized understanding with intent to comply. Updated Medication List Medication Instructions Recorded Confirmed Type multivitamin 1 tab PO QAM 08/12/18 06/01/23 History losartan 100 mg tablet 100 mg PO QAM 03/24/19 06/01/23 History atorvastatin 10 mg tablet 10 mg PO QAM 06/01/23 06/01/23 History levothyroxine 100 mcg tablet 100 mcg PO QAM 06/01/23 06/01/23 History metoprolol succinate 25 mg 25 mg PO QAM 06/01/23 06/01/23 History tablet,extended release 24 hr aspirin 81 mg tablet,delayed 81 mg PO DAILY #90 tabs 06/02/23 Rx release Hospital Stay Data Consultations 05/31/23 20:36 ED Decision to Admit Stat 05/31/23 21:49 Consult Cardiology Routine Procedures Performed Operation Date: 06/02/23 14:00 Actual Procedures s Cineradiography w/Routine Exam - Jon Barbosa MD p Cath, Left with Cors and Vent - Jon Barbosa MD Diagnostic Imagining Performed 06/02/23 07:17 CL Cath Imgs for PACS use only Routine Pending Results Patient Have Any Pending Studies at Discharge: No Discharge Instructions Given to Patient (Per Discharging Provider) Please take all medications as instructed on discharge list below. Please followup with your primary care provider and your hear doctor at the times and dates listed. Please start daily baby aspirin. It was a pleasure taking care of you! Please call if you have any questions or problems. You can reach a [facility] hospitalist on duty at [facility] 24 hours a day by calling [phone]. Take care of yourself. Lili Pierce, [facility] Centerist Total Time Total Time Spent Total Time Spent (In Minutes): 60
== END 2023-06-02 20:10 | disposition home or self-care (01) | DRG 281 ==
LOC: ED 17:16 → EDINP 21:36 → 1E 06-01 06:15